=== PATIENT | male | born 1970 | race Caucasian/White ===

== ENCOUNTER 2021-03-04 17:43 | Inpatient (IN) ==
--- NOTE | 2021-03-04 18:13 | Emergency Department Note ---
Impression & Plan Weakness, Anemia, Colonic mass, Near syncope ED Provider Note NAME: BARNEY [id number] COOK AGE: 50 SEX: M : 1970 ARRIVES VIA: Walk-In INFORMANT: [Patient] ED PROVIDER(S): [Lm Pizarro MD] CHIEF COMPLAINT: Abnormal labs HISTORY OF PRESENT ILLNESS: Patient is a 50-year-old male who presents to the ED with abnormal laboratory values. Yesterday, he had some routine lab work done and his hemoglobin returned at 6.6. The patient states he has felt some palpitations at night, he has been somewhat dizzy and weak. At times, he has almost passed out. He complains of intermittent lower abdominal pain that has been going on for months. No black or bloody stool, no vomiting. He has not had fever, chills, cough or congestion. He has no history of GI bleeding and is on no blood thinners. REVIEW OF SYSTEMS: See HPI for pertinent positives and negatives. A total of ten systems were reviewed and were otherwise negative. PMHx/PSHx: See Below SOCIAL HISTORY: See Below. PHYSICAL EXAM: GENERAL: Patient is in no acute distress. HEENT: No acute trauma, normocephalic atraumatic, mucous membranes moist, no nasal congestion, no scleral icterus. NECK: No stridor, no adenopathy, no meningismus, trachea is midline. LUNGS: Clear to auscultation bilaterally, no wheeze, no rhonchi, breath sounds equal. HEART: Without murmurs gallops or rubs, regular rate and rhythm. ABDOMEN: Soft, nontender, bowel sounds positive, no hernias, no peritonitis. EXTREMITIES: No cyanosis or edema, full range of motion of all the joints without pain or difficulty, no signs for acute trauma. NEUROLOGIC: Oriented x 3, no acute motor or sensory deficits, no focal weakness. SKIN: No rash, no jaundice, no diaphoresis. Rectal: Brown stool, heme-negative. DIFFERENTIAL DIAGNOSIS: Infection, dehydration, metabolic abnormality, hypo/hyperglycemia, electrolyte disturbance, anemia, GI bleeding, vitamin deficiency, hypoxia, cardiac sources, intracerebral event, toxicologic issues, stroke, TIA, as well as other pathologies. EMERGENCY DEPARTMENT COURSE/PROCEDURES: ECG: Indication was weakness. The ECG shows a normal sinus rhythm with a rate of 84. There is no ST elevation, no PVCs. The QTc is 460. Continuous Cardiac Monitoring: An order was placed for continuous cardiac monitoring. The monitor shows a rate of 88 with normal sinus rhythm. Critical Care Note: I have personally spent 46 minutes of critical care time in the direct management of this patient. This includes bedside care, interpretation of diagnostic studies, and testing, discussion with consultants, patient, and family members, and other required patient management activities. This 46 minutes is in excess of all separately billable procedures. MEDICAL DECISION MAKING: There is a mild leukocytosis, this could be consistent with infection or just the stress of his presentation. Hemoglobin was low at 6.5. Platelet count was somewhat high at 649. No coagulopathy. No significant electrolyte abnormality or kidney failure. No worrisome liver enzyme elevation. Folate and B12 levels were normal. The patient appeared to be in a euthyroid state. ECG showed a sinus rhythm, no acute ischemia. Covid testing returned negative. Chest film showed some cardiomegaly, no pneumonia or CHF. Abdominal and pelvis CT shows a potential colonic mass. On exam, patient was not toxic or febrile. Rectal exam was performed and the stool was heme-negative. The patient did consent to a blood transfusion. He was ordered for 1 unit of blood to be transfused while here in the ED. I spoke to the patient about his findings. I do think a hospital stay is w arranted. He may require more than 1 unit of blood. He needs further work-up for the colonic mass. I did speak with case management. The on-call hospitalist has been consulted. Past Med/Surg History Medical History Anemia Anxiety Depression DMII (diabetes mellitus, type 2) HTN (hypertension) Restless legs syndrome with nocturnal myoclonus Family History (Updated 03/04/21 @ 22:08 by ADAMA Balderas) Father Coronary heart disease Dyslipidemia Hypertension Mother Diabetes Dyslipidemia Sister Ovarian cancer Grandfather Colorectal cancer Social History Smoking Status: Former smoker Smoking End Date: 20 years ago; Hx Alcohol Use: No Hx Substance Use: No Preferred Language: Romanian Communication Ability: Effective Inorganic Chemical Technician Required: No Beliefs That Will Affect Care: None Current Living Situation Comment: [facility] Feels Safe at Home: Yes Safety Concerns: Feels Safe At This Time Assistive Devices: Glasses Allergies Allergies Allergy/AdvReac Type Severity Reaction Status Date / Time shellfish derived Allergy Unknown ON MED LIST Verified 03/04/21 18:15 Home Meds Home Medications Medication Instructions Recorded Confirmed buspirone 10 mg PO DAILY 03/04/21 03/04/21 clonidine HCl 0.1 mg PO DAILY 03/04/21 03/04/21 clonidine HCl 0.3 mg PO HS 03/04/21 03/04/21 enalapril maleate 5 mg PO DAILY 03/04/21 03/04/21 metformin 1,000 mg PO BID 03/04/21 03/04/21 metoprolol tartrate 25 mg PO BID 03/04/21 03/04/21 sertraline 200 mg PO DAILY 03/04/21 03/04/21 topiramate 200 mg PO BID 03/04/21 03/04/21 Results & Data (ED) Vital Signs Vital Signs - 24 hr 03/04/21 17:44 03/04/21 18:10 03/04/21 19:00 Temperature 36.9 C Temperature Source Temporal Artery Scan Pulse Rate 88 77 Pulse Rate [Right Finger] 84 Pulse Rate from SpO2 Sensor 77 Pulse Rhythm Pulse Rhythm [Right Finger] Regular Pulse Strength Pulse Strength [Right Finger] Normal Respiratory Rate 18 20 19 Respiratory Effort / Characteristics Non-Labored Spontaneous Respiratory Depth Normal Blood Pressure 142/85 H 117/76 Blood Pressure [Left Arm] 125/74 Blood Pressure Mean 104 89 Blood Pressure Mean [Left Arm] 91 Blood Pressure Position Sitting Blood Pressure Position [Left Arm] Sitting Pulse Oximetry 99 97 99 Oxygen Delivery Method Room Air Room Air Sepsis Recent Fever Within 48 Hours No Sepsis New/Unexplained Change in Mental Status No Sepsis Action Taken by Nursing No Action Required 03/04/21 21:11 Temperature 37 C Temperature Source Oral Pulse Rate 76 Pulse Rate [Right Finger] Pulse Rate from SpO2 Sensor Pulse Rhythm Regular Pulse Rhythm [Right Finger] Pulse Strength Normal Pulse Strength [Right Finger] Respiratory Rate 20 Respiratory Effort / Characteristics Respiratory Depth Blood Pressure 118/78 Blood Pressure [Left Arm] Blood Pressure Mean 91 Blood Pressure Mean [Left Arm] Blood Pressure Position Sitting Blood Pressure Position [Left Arm] Pulse Oximetry 100 Oxygen Delivery Method Sepsis Recent Fever Within 48 Hours Sepsis New/Unexplained Change in Mental Status Sepsis Action Taken by Retirement Medications Current Medication List: was personally reviewed by me Laboratory Data Attestation: I reviewed the patient's lab results. Result diagrams: 03/04/21 17:59 03/04/21 17:59 Lab Results 03/04/21 03/04/21 03/04/21 Range/Units 17:59 17:59 17:59 WBC 12.34 H (4.8-10.8) K/uL RBC 4.62 L (4.7-6.1) M/uL Hgb 6.5 L* (14.0-18.0) g/dL Hct 25.8 L (42-52) % MCV 55.8 L (80-100) fL MCH 14.1 L (25-34) pg MCHC 25.2 L (32-36) g/dL RDW Std Deviation 43.8 (36.4-46.3) fL RDW Coeff of Maria L 21.8 H (11.5-14.5) % Plt Count 649 H (130-400) K/uL MPV 8.3 (7.4-10.4) fL Immature Gran % (Auto) 0.2 % Neut % (Auto) 60.0 % Lymph % (Auto) 28.3 % Bennett % (Auto) 8.6 % Eos % (Auto) 2.4 % Baso % (Auto) 0.5 % Neut # (Auto) 7.42 H (1.4-6.5) K/uL Lymph # (Auto) 3.49 H (1.2-3.4) K/uL Bennett # (Auto) 1.06 H (0.11-0.59) K/uL Eos # (Auto) 0.29 (0-0.5) K/uL Baso # (Auto) 0.06 (0-0.2) K/uL Immature Gran # (Auto) 0.02 (0.00-0.02) K/uL Polychromasia 1+ Hypochromasia Present Anisocytosis Present Ovalocytes 1+ PT 9.8 (9.0-12.0) Seconds INR 1.0 (0.9-1.1) APTT 21.8 (21.0-31.0) Seconds PTT Ratio 0.8 Sodium (136-145) mmol/L Potassium (3.5-5.1) mmol/L Chloride (98-107) mmol/L Carbon Dioxide (21-32) mmol/L Anion Gap (3-11) BUN (7-18) mg/dl Creatinine (0.6-1.4) mg/dl Est Cr Clr Drug Dosing ml/min Est GFR ( Amer) ml/min Est GFR (Non-Af Amer) ml/min BUN/Creatinine Ratio (10-20) Glucose (70-99) mg/dl Calcium (8.5-10.1) mg/dl Magnesium (1.8-2.4) mg/dl Total Bilirubin (0.2-1) mg/dl AST (15-37) U/L ALT (12-78) U/L Alkaline Phosphatase (45-117) U/L Troponin I (0-0.045) ng/ml Total Protein (6.4-8.2) gm/dl Albumin (3.4-5.0) gm/dl Globulin (2.5-4.0) gm/dl Albumin/Globulin Ratio (0.9-2) Vitamin B12 (193-986) pg/ml Folate (>5.38) ng/ml TSH (0.300-4.500) uIu/ml COVID-19 Eval Order SARS-CoV-2 (PCR) (Negative) Blood Type B Positive Blood Type Recheck Antibody Screen NEGATIVE Crossmatch See Detail 03/04/21 03/04/21 03/04/21 Range/Units 17:59 18:16 19:35 WBC (4.8-10.8) K/uL RBC (4.7-6.1) M/uL Hgb (14.0-18.0) g/dL Hct (42-52) % MCV (80-100) fL MCH (25-34) pg MCHC (32-36) g/dL RDW Std Deviation (36.4-46.3) fL RDW Coeff of Maria L (11.5-14.5) % Plt Count (130-400) K/uL MPV (7.4-10.4) fL Immature Gran % (Auto) % Neut % (Auto) % Lymph % (Auto) % Bennett % (Auto) % Eos % (Auto) % Baso % (Auto) % Neut # (Auto) (1.4-6.5) K/uL Lymph # (Auto) (1.2-3.4) K/uL Bennett # (Auto) (0.11-0.59) K/uL Eos # (Auto) (0-0.5) K/uL Baso # (Auto) (0-0.2) K/uL Immature Gran # (Auto) (0.00-0.02) K/uL Polychromasia Hypochromasia Anisocytosis Ovalocytes PT (9.0-12.0) Seconds INR (0.9-1.1) APTT (21.0-31.0) Seconds PTT Ratio Sodium 141 (136-145) mmol/L Potassium 4.0 (3.5-5.1) mmol/L Chloride 112 H (98-107) mmol/L Carbon Dioxide 23 (21-32) mmol/L Anion Gap 6.0 (3-11) BUN 13 (7-18) mg/dl Creatinine 0.99 (0.6-1.4) mg/dl Est Cr Clr Drug Dosing 104.4 ml/min Est GFR ( Amer) 101.8 ml/min Est GFR (Non-Af Amer) 87.8 ml/min BUN/Creatinine Ratio 13.2 (10-20) Glucose 102 H (70-99) mg/dl Calcium 8.4 L (8.5-10.1) mg/dl Magnesium 2.4 (1.8-2.4) mg/dl Total Bilirubin 0.3 (0.2-1) mg/dl AST 7 L (15-37) U/L ALT 10 L (12-78) U/L Alkaline Phosphatase 92 (45-117) U/L Troponin I < 0.015 (0-0.045) ng/ml Total Protein 7.6 (6.4-8.2) gm/dl Albumin 3.6 (3.4-5.0) gm/dl Globulin 4.0 (2.5-4.0) gm/dl Albumin/Globulin Ratio 0.9 (0.9-2) Vitamin B12 213 (193-986) pg/ml Folate > 20.00 (>5.38) ng/ml TSH 1.600 (0.300-4.500) uIu/ml COVID-19 Eval Order Covid19 at [facility] SARS-CoV-2 (PCR) (Negative) Blood Type Blood Type Recheck Antibody Screen Crossmatch 03/04/21 03/04/21 Range/Units 19:35 20:01 WBC (4.8-10.8) K/uL RBC (4.7-6.1) M/uL Hgb (14.0-18.0) g/dL Hct (42-52) % MCV (80-100) fL MCH (25-34) pg MCHC (32-36) g/dL RDW Std Deviation (36.4-46.3) fL RDW Coeff of Maria L (11.5-14.5) % Plt Count (130-400) K/uL MPV (7.4-10.4) fL Immature Gran % (Auto) % Neut % (Auto) % Lymph % (Auto) % Bennett % (Auto) % Eos % (Auto) % Baso % (Auto) % Neut # (Auto) (1.4-6.5) K/uL Lymph # (Auto) (1.2-3.4) K/uL Bennett # (Auto) (0.11-0.59) K/uL Eos # (Auto) (0-0.5) K/uL Baso # (Auto) (0-0.2) K/uL Immature Gran # (Auto) (0.00-0.02) K/uL Polychromasia Hypochromasia Anisocytosis Ovalocytes PT (9.0-12.0) Seconds INR (0.9-1.1) APTT (21.0-31.0) Seconds PTT Ratio Sodium (136-145) mmol/L Potassium (3.5-5.1) mmol/L Chloride (98-107) mmol/L Carbon Dioxide (21-32) mmol/L Anion Gap (3-11) BUN (7-18) mg/dl Creatinine (0.6-1.4) mg/dl Est Cr Clr Drug Dosing ml/min Est GFR ( Amer) ml/min Est GFR (Non-Af Amer) ml/min BUN/Creatinine Ratio (10-20) Glucose (70-99) mg/dl Calcium (8.5-10.1) mg/dl Magnesium (1.8-2.4) mg/dl Total Bilirubin (0.2-1) mg/dl AST (15-37) U/L ALT (12-78) U/L Alkaline Phosphatase (45-117) U/L Troponin I (0-0.045) ng/ml Total Protein (6.4-8.2) gm/dl Albumin (3.4-5.0) gm/dl Globulin (2.5-4.0) gm/dl Albumin/Globulin Ratio (0.9-2) Vitamin B12 (193-986) pg/ml Folate (>5.38) ng/ml TSH (0.300-4.500) uIu/ml COVID-19 Eval Order SARS-CoV-2 (PCR) NEGATIVE (Negative) Blood Type Blood Type Recheck B Positive Antibody Screen Crossmatch Administered Medications Heparin Sodium (Porcine) (Heparin Sod 5,000 Unit/0.5 Ml Vial) 5,000 units SQ Q8 DEAN Stop: 04/03/21 22:50 Last Admin: 03/04/21 23:56 Dose: 5,000 units Documented by: [id number] Discontinued Medications Ioversol (Optiray 320 150ml) 89 ml IV ONCE ONE Stop: 03/04/21 19:47 Last Admin: 03/04/21 19:46 Dose: 1 ml Documented by: [id number] Imaging Data Radiologist's Impression: Chest X-Ray 03/04/21 18:09 XR chest 1V portable HISTORY: weakness COMPARISON: None. FINDINGS: The cardiac silhouette is mildly enlarged. The lungs are clear. No pleural effusions. No pneumothorax. Old, healed left-sided rib fractures. IMPRESSION: Mild cardiomegaly. Otherwise, no acute process within the chest. ACT 112: Negative or not required by law. Electronically signed by: George Montague M.D. 03/04/2021 6:47 PM Abdomen/Pelvis CT 03/04/21 19:[address] WITH IV CONTRAST CT DOSE: 1003.82 mGy.cm HISTORY: lower abd pain, anemia TECHNIQUE: Multiaxial CT images of the abdomen and pelvis were performed following the use of intravenous contrast. A dose lowering technique was utilized adhering to the principles of ALARA. COMPARISON STUDY: None. FINDINGS: There is a 1.4 cm irregular nodule within the left lower lobe posteriorly abutting the pleura. There is also a trace left pleural effusion. No pneumoperitoneum. No pneumatosis. No suspicious lytic or blastic osseous lesions. Small calcification within the right hepatic lobe. No hepatic or splenic masses. The adrenal glands, gallbladder, and pancreas are unremarkable. The kidneys enhance normally. No hydronephrosis. Normal caliber abdominal aorta. No retroperitoneal lymphadenopathy. The bladder is unremarkable. No evidence for bowel obstruction. Normal appendix. There is a focal area of moderate bowel wall thickening involving the proximal descending colon measuring approximately 8 cm in length. There are multiple enlarged pericolonic lymph nodes at this location. Some of these appear to be partially necrotic. Dominant pericolonic/mesenteric lymph node on image 184 measures 2.5 x 1.8 cm. This focal area of bowel wall thickening is highly suspicious for a colonic mass with associated pericolonic metastatic lymphadenopathy. No perforation identified. IMPRESSION: 1. An 8 cm segment of moderate bowel wall thickening involving the proximal descending colon with associated pericolonic/mesenteric lymphadenopathy as described above. This is highly suspicious for a colonic mass. GI consultation recommended for follow-up colonoscopy. 2. There is a 1.4 cm irregular nodule within the left lower lobe posteriorly abutting the pleura with a trace left pleural effusion. This could represent neoplasm/metastatic disease. Follow-up PET scan recommended for further evaluation. ACT 112: Negative or not required by law. Electronically signed by: George Montague M.D. 03/04/2021 8:06 PM Discharge Plan Visit Data Chief Complaint: Abnormal Labs/Diagnostic Testing Stated Complaint: HGB 6.6 ED Provider: Lm Pizarro Discharge Problem: Weakness, Anemia, Colonic mass, Near syncope Patient Disposition: Admitted As Inpatient Condition: Fair Discharge Instructions Interventions: ED Discharge Assessment Last Done: 03/04/21 22:47 Discharge Problem: Anemia Qualifiers: Anemia type: unspecified type Qualified Code(s): D64.9 - Anemia, unspecified
[2021-03-04 18:38] LABS: Alanine Aminotransferase 10 U/L (12-78); Albumin Level 3.6 gm/dl (3.4-5.0); Aspartate Aminotransferase 7 U/L (15-37); BUN Creatinine Ratio 13.2 (10-20); Blood Urea Nitrogen 13 mg/dl (7-18); Calcium 8.4 mg/dl (8.5-10.1); Carbon Dioxide 23 mmol/L (21-32); Chloride 112 mmol/L (98-107); Creatinine Clr Calc Pharmacy 104.4 ml/min; Est GFR (African American) 101.8 ml/min; Est GFR (Non-African American) 87.8 ml/min; Glucose 102 mg/dl (70-99); Magnesium 2.4 mg/dl (1.8-2.4); Sodium 141 mmol/L (136-145)
[2021-03-04 18:46] LABS: Partial Thromboplastin Ratio 0.8; Partial Thromboplastin Time 21.8 Seconds (21.0-31.0); Prothrombin Time 9.8 Seconds (9.0-12.0)
--- NOTE | 2021-03-04 18:48 | XRay Report ---
XR chest 1V portable HISTORY: weakness COMPARISON: None. FINDINGS: The cardiac silhouette is mildly enlarged. The lungs are clear. No pleural effusions. No pn eumothorax. Old, healed left-sided rib fractures. IMPRESSION: Mild cardiomegaly. Otherwise, no acute process within the chest. ACT 112: Negative or not required by law. Electronically signed by: George Montague M.D. 03/04/2021 6:47 PM
[2021-03-04 18:49] LABS: Albumin Globulin Ratio 0.9 (0.9-2); Alkaline Phosphatase 92 U/L (45-117); Bilirubin,Total 0.3 mg/dl (0.2-1); Total Protein 7.6 gm/dl (6.4-8.2); Troponin I < 0.015 ng/ml (0-0.045)
[2021-03-04 18:54] LABS: Hematocrit (blood only) 25.8 % (42-52); Hemoglobin 6.5 g/dL (14.0-18.0); Mean Corpuscular Hemoglobin 14.1 pg (25-34); Mean Corpuscular Hgb Conc 25.2 g/dL (32-36); Mean Corpuscular Volume 55.8 fL (80-100); Mean Platelet Volume 8.3 fL (7.4-10.4); Platelet Count 649 K/uL (130-400); RDW Coefficient of Variation 21.8 % (11.5-14.5); RDW Standard Deviation 43.8 fL (36.4-46.3); Red Blood Count 4.62 M/uL (4.7-6.1); White Blood Count 12.34 K/uL (4.8-10.8)
[2021-03-04 19:11] LABS: Folate (Folic Acid) > 20.00 ng/ml (>5.38); Vitamin B12 213 pg/ml (193-986)
[2021-03-04] MEDS ORDERED: SODIUM CHLORIDE 0.9% 250 ML IV PRN ×2 (19:16→22:51)
[2021-03-04 19:23] LABS: Anisocytosis Present; Basophils # (auto) 0.06 K/uL (0-0.2); Basophils % (auto) 0.5 %; Eosinophils # (auto) 0.29 K/uL (0-0.5); Eosinophils % (auto) 2.4 %; Hypochromasia Present; Immature Granulocytes # (auto) 0.02 K/uL (0.00-0.02); Immature Granulocytes % (auto) 0.2 %; Lymphocytes # (auto) 3.49 K/uL (1.2-3.4); Lymphocytes % (auto) 28.3 %; Monocytes # (auto) 1.06 K/uL (0.11-0.59); Monocytes % (auto) 8.6 %; Neutrophils # (auto) 7.42 K/uL (1.4-6.5); Ovalocytes 1+; Polychromasia 1+
[2021-03-04] MEDS ORDERED: OPTIRAY 320 150ml IV ONE (19:46)
--- NOTE | 2021-03-04 20:07 | CT Scan Report ---
ABDOMEN AND PELVIS CT WITH IV CONTRAST CT DOSE: 1003.82 mGy.cm HISTORY: lower abd pain, anemia TECHNIQUE: Multiaxial CT images of the abdomen and pelvis were performed following the use of intrave nous contrast. A dose lowering technique was utilized adhering to the principles of ALARA. COMPARISON STUDY: None. FINDINGS: There is a 1.4 cm irregular nodule within the left lower lobe posteriorly abutting the pleu ra. There is also a trace left pleural effusion. No pneumoperitoneum. No pneumatosis. No suspicious l ytic or blastic osseous lesions. Small calcification within the right hepatic lobe. No hepatic or spl enic masses. The adrenal glands, gallbladder, and pancreas are unremarkable. The kidneys enhance norm ally. No hydronephrosis. Normal caliber abdominal aorta. No retroperitoneal lymphadenopathy. The blad nagi is unremarkable. No evidence for bowel obstruction. Normal appendix. There is a focal area of mod erate bowel wall thickening involving the proximal descending colon measuring approximately 8 cm in l ength. There are multiple enlarged pericolonic lymph nodes at this location. Some of these appear to be partially necrotic. Dominant pericolonic/mesenteric lymph node on image 184 measures 2.5 x 1.8 cm. This focal area of bowel wall thickening is highly suspicious for a colonic mass with associated per icolonic metastatic lymphadenopathy. No perforation identified. IMPRESSION: 1. An 8 cm segment of moderate bowel wall thickening involving the proximal descending colon with ass ociated pericolonic/mesenteric lymphadenopathy as described above. This is highly suspicious for a co lonic mass. GI consultation recommended for follow-up colonoscopy. 2. There is a 1.4 cm irregular nodule within the left lower lobe posteriorly abutting the pleura with a trace left pleural effusion. This could represent neoplasm/metastatic disease. Follow-up PET scan recommended for further evaluation. ACT 112: Negative or not required by law. Electronically signed by: George Montague M.D. 03/04/2021 8:06 PM
--- NOTE | 2021-03-04 21:50 | History & Physical Report ---
Date of Service March 04, 2021 Assessment & Plan (1) Abnormal CT scan: 1. An 8 cm segment of moderate bowel wall thickening involving the proximal descending colon with associated pericolonic/mesenteric lymphadenopathy as described above. This is highly suspicious for a colonic mass. GI consult ation recommended for follow-up colonoscopy. 2. There is a 1.4 cm irregular nodule within the left lower lobe posteriorly abutting the pleura with a trace left pleural effusion. This could represent n eoplasm/metastatic disease. Follow-up PET scan recommended for further evaluation. Gastroenterology consult placed evaluate for malignancy Keep NPO after midnight (2) Anemia: Multifactorial with microcytic hypochromic - Blood transfusion already started in ED, so will need to send Iron panel studies at later time - Hematology/Oncological evaluation as above pending GI evaluation - Transfuse 2 units PRBC - Follow for acute blood loss (3) Restless legs syndrome with nocturnal myoclonus: Symptomatic while sleeping no current therapy or workup completed (4) HTN (hypertension): - Continue Clonidine - Enalapril will need converted to formulary- currently on hold until proven hemodynamically stable (5) DMII (diabetes mellitus, type 2): Hold meformin - Loose sliding scale - CF 35, no carb ratio coverage (6) Depression: Anxiety/depression Continue sertaline, buspirone, topiramate (7) Anxiety: As above (8) Lower urinary tract symptoms (LUTS): hesitation with starting urine - Defer to rounding team History of Present Illness Primary Care Provider: LISSETTE Levi 50 YOM with past medical history of: HTN, DMII, anxiety, depression. Patient was brought over from [facility] today for abnormal labs with a HGB of 6.5 , HCT 25.8. He denies any history or recent, blood in stools, dark tarry stools, hematemesis. He had a CT scan performed of his abdomen and pelvis that revealed a 8 cm segment of moderate bowel wall thickening involving the proximal descending colon with associated pericolonic/mesenteric lymphadenopathy as, That is highly suspicious for a colonic mass. He is also noted to have 1.cm irregular nodule within the left lower lobe with trace left pleural effusion. He was typed and crossed for PRBC and was receiving 1 unit upon evaluation. As above, he denies any blood in stools, hematemesis, or blood when wiping. He has no pain with defecation or change in his stool caliber or frequency. He will occasionally get a pain in his right lower quadrant that will radiate to his testicle maybe once a week. He also endorses early satiety for the past 2 months as well as feeling easily tired and fatigued. Says he weighed himself recently and was 230 lbs which was ~30 pound weight loss over the past 4-6 months. Denies any bone pain or difficulty breathing. No night sweats or waking. He recall, Grandfather with history of colon cancer, sister is from Ovarian cancer, and Brother had some stomach disease and finishing Chemo. Allergies Allergy/AdvReac Type Severity Reaction Status Date / Time shellfish derived Allergy Unknown ON MED LIST Verified 03/04/21 18:15 Home Medications Medication Instructions Recorded Confirmed Type buspirone 10 mg PO DAILY 03/04/21 03/04/21 History clonidine HCl 0.1 mg PO DAILY 03/04/21 03/04/21 History clonidine HCl 0.3 mg PO HS 03/04/21 03/04/21 History enalapril maleate 5 mg PO DAILY 03/04/21 03/04/21 History metformin 1,000 mg PO BID 03/04/21 03/04/21 History metoprolol tartrate 25 mg PO BID 03/04/21 03/04/21 History sertraline 200 mg PO DAILY 03/04/21 03/04/21 History topiramate 200 mg PO BID 03/04/21 03/04/21 History Past Med/Surg History Medical History Anemia Anxiety Depression DMII (diabetes mellitus, type 2) HTN (hypertension) Restless legs syndrome with nocturnal myoclonus Family History (Updated 03/04/21 @ 22:08 by ADAMA Balderas) Father Coronary heart disease Dyslipidemia Hypertension Mother Diabetes Dyslipidemia Sister Ovarian cancer Grandfather Colorectal cancer Social History Smoking Status: Former smoker Smoking End Date: 20 years ago; Hx Alcohol Use: No Hx Substance Use: No Preferred Language: Hungarian Communication Ability: Effective Spanish Literature Professor Required: No Beliefs That Will Affect Care: None Current Living Situation Comment: [facility] Feels Safe at Home: Yes Safety Concerns: Feels Safe At This Time Assistive Devices: Glasses Review of Systems Review of Systems: REVIEW OF SYSTEMS: Constitutional: No fever, sweats or chills Eyes: (+) worsening in vision wears glasses, No diplopia ENT: normal hearing, no trouble swallowing Respiratory: No cough, sputum, dyspnea at rest or on exertion Cardiovascular: No chest pain, tightness or palpitations Abdomen: as per HPI, No pain, nausea, vomiting, diarrhea or constipation Musculoskeletal: (+) myoclonus of legs while sleeping with pain, No joint pain, calf pain, swelling Neurologic: No weakness, numbness/tingling, or balance problems Psychiatric: (+) anxiety or depression Skin: No rash or itch : (+) difficulty starting stream Physical Exam Physical Exam: PHYSICAL EXAM: General: awake, alert, no apparent distress Head: Normocephalic, atraumatic ENT: PERRL, EOMI, pale conjunctivae no pharyngeal exudate, mucous membranes moist, no bleeding gums Neuro: AAO x 3, speech clear and appropriate, strength intact bilaterally 5/5, sensation intact and equal all extremities and dermatomes, no pronator drift Chest: equal rise and fall of the chest, no accessory muscle use, no heaves or thrills, Clear to auscultation, on room air, Cardiac: Regular rate and rhythm, telemetry reviewed- NSR, skin warm dry, cap refill <3 seconds, peripheral pulses +2 no JVD, no murmur, no edema GI: NABS x 4 quadrants, soft, nontender to palpation, no rebound, guarding or tenderness : Spontaneously voiding, no pain, no CVA tenderness, Extremities: Normal inspection, no peripheral edema or erythema, calfs nontender to palpation Psych: Normal mood and affect Skin: no rash or erythema Results & Data Results & Data ([facility]) Vital Signs (Past 12 Hours) Vital Signs Temp Pulse Pulse Resp BP BP Pulse Ox 03/04/21 21:39 36.9 C 71 20 135/84 100 03/04/21 21:11 37 C 76 20 118/78 100 03/04/21 19:00 77 19 117/76 99 03/04/21 18:10 84 20 125/74 97 03/04/21 17:44 36.9 C 88 18 142/85 H 99 Laboratory Results Abnormal lab results 03/04/21 03/04/21 03/04/21 Range/Units 17:59 17:59 17:59 WBC 12.34 H (4.8-10.8) K/uL RBC 4.62 L (4.7-6.1) M/uL Hgb 6.5 L* (14.0-18.0) g/dL Hct 25.8 L (42-52) % MCV 55.8 L (80-100) fL MCH 14.1 L (25-34) pg MCHC 25.2 L (32-36) g/dL RDW Coeff of Maria L 21.8 H (11.5-14.5) % Plt Count 649 H (130-400) K/uL Neut # (Auto) 7.42 H (1.4-6.5) K/uL Lymph # (Auto) 3.49 H (1.2-3.4) K/uL Elliott # (Auto) 1.06 H (0.11-0.59) K/uL Chloride 112 H (98-107) mmol/L Glucose 102 H (70-99) mg/dl Calcium 8.4 L (8.5-10.1) mg/dl AST 7 L (15-37) U/L ALT 10 L (12-78) U/L Crossmatch See Detail Diagnostic Findings Chest X-Ray 03/04/21 18:09 XR chest 1V portable HISTORY: weakness COMPARISON: None. FINDINGS: The cardiac silhouette is mildly enlarged. The lungs are clear. No pleural effusions. No pneumothorax. Old, healed left-sided rib fractures. IMPRESSION: Mild cardiomegaly. Otherwise, no acute process within the chest. Electronically signed by: George Montague M.D. 03/04/2021 6:47 PM Abdomen/Pelvis CT 03/04/21 19:[address] WITH IV CONTRAST CT DOSE: 1003.82 mGy.cm HISTORY: lower abd pain, anemia TECHNIQUE: Multiaxial CT images of the abdomen and pelvis were performed following the use of intravenous contrast. A dose lowering technique was utilized adhering to the principles of ALARA. COMPARISON STUDY: None. FINDINGS: There is a 1.4 cm irregular nodule within the left lower lobe posteriorly abutting the pleura. There is also a trace left pleural effusion. No pneumoperitoneum. No pneumatosis. No suspicious lytic or blastic osseous lesions. Small calcification within the right hepatic lobe. No hepatic or splenic masses. The adrenal glands, gallbladder, and pancreas are unremarkable. The kidneys enhance normally. No hydronephrosis. Normal caliber abdominal aorta. No retroperitoneal lymphadenopathy. The bladder is unremarkable. No evidence for bowel obstruction. Normal appendix. There is a focal area of moderate bowel wall thickening involving the proximal descending colon measuring approximately 8 cm in length. There are multiple enlarged pericolonic lymph nodes at this location. Some of these appear to be partially necrotic. Dominant pericolonic/mesenteric lymph node on image 184 measures 2.5 x 1.8 cm. This focal area of bowel wall thickening is highly suspicious for a colonic mass with associated pericolonic metastatic lymphadenopathy. No perforation identified. IMPRESSION: 1. An 8 cm segment of moderate bowel wall thickening involving the proximal descending colon with associated pericolonic/mesenteric lymphadenopathy as descr ibed above. This is highly suspicious for a colonic mass. GI consultation recommended for follow-up colonoscopy. 2. There is a 1.4 cm irregular nodule within the left lower lobe posteriorly abutting the pleura with a trace left pleural effusion. This could represent neoplasm/metastatic disease. Follow-up PET scan recommended for further evaluation. Electronically signed by: George Montague M.D. 03/04/2021 8:06 PM Medications Administered Discontinued Medications Ioversol (Optiray 320 150ml) 89 ml IV ONCE ONE Stop: 03/04/21 19:47 Last Admin: 03/04/21 19:46 Dose: 1 ml Documented by: [id number] ECG Additional Comments: Normal sinus rhythm Low voltage QRS Borderline ECG No previous ECGs available Code Status & VTE Plan Code Status CODE: FULL VTE: SCD's, Heparin 5000 units subq q8 VTE Prophylaxis Plan VTE Prophylaxis will be ordered: Yes Supervising Physician Co-Signing Physician Notes Patient seen and examined, chart reviewed, case discussed with ADAMA Martinez and I agree with his assessment and plan as above. Briefly, patient presents with microcytic anemia, found with colonic mass concerning for malignancy. On exam patient is afebrile, HD stable, NAD Skin -+Pallor HEENT - NC/AT, PERRL, MMM, Neck supple Heart - +S1/S2, regular, no m/r/g Lungs - CTA Abd - +BS, soft, NT/ND Ext - No edema Labs and images reviewed. Hgb=6.5, Hct=25.8, MCV=55.8, MCH=14.1 Assessment/Plan -Transfusion of PRBCs - monitor CBC -GI consultation for workup of mass, possible malignancy -Consider Heme/Onc consultation -Remainder of plan as above PG Care Time/CCT Total # of Minutes Spent Total Time Spent with Patient: Total time spent is greater than 50% in coordination of care (as documented) at patient's floor/unit and/or counseling patient: Coding Level of Care Code 91760 Initial Inpt Care Lvl [address] scan R93.89 Anemia D64.89 Anemia type: other cause Other causes of anemia: other cause, not classified Restless legs syndrome with nocturnal myoclonus G25.81; G25.3 HTN (hypertension) I10 Hypertension type: essential hypertension DMII (diabetes mellitus, type 2) E11.69 Diabetes mellitus complication status: with other specified complication Diabetes mellitus bed bug exterminator insulin use: without bed bug exterminator use Depression F32.9 Depression Type: unspecified Anxiety F41.9 Lower urinary tract symptoms (LUTS) R39.9 (1) DMII (diabetes mellitus, type 2) Diabetes mellitus complication status: with other specified complication Diabetes mellitus bed bug exterminator insulin use: without bed bug exterminator use Qualified Code(s): E11.69 - Type 2 diabetes mellitus with other specified complication (2) Anemia Anemia type: other cause Other causes of anemia: other cause, not classified Qualified Code(s): D64.89 - Other specified anemias (3) Depression Depression Type: unspecified Qualified Code(s): F32.9 - Major depressive disorder, single episode, unspecified (4) HTN (hypertension) Hypertension type: essential hypertension Qualified Code(s): I10 - Essential (primary) hypertension
[2021-03-04] MEDS ORDERED: GLUCOSE 10 TABS/TUBE PO PRN (22:51)
[2021-03-04] MEDS ORDERED: GLUCOSE 40% GEL 15 GM TUBE PO PRN (22:51)
[2021-03-04] MEDS ORDERED: CARBOHYDRATES FOR HYPOGLYCEMIA PO PRN (22:51)
[2021-03-04] MEDS ORDERED: ACETAMINOPHEN 325 MG TAB PO PRN (22:51)
[2021-03-04] MEDS ORDERED: GLUCAGON FOR INJ 1 MG VIAL SQ PRN (22:51)
[2021-03-04] MEDS ORDERED: DEXTROSE 50% 50 ML SYRINGE IV PRN (22:51)
[2021-03-04] MEDS: HEPARIN SOD 5,000 UNIT/0.5 ML VIAL SQ SCH (23:56)
[2021-03-05] MEDS ORDERED: Nursing to Pharmacy Communication SCH ×2 (00:30→10:15)
[2021-03-05] MEDS ORDERED: INSULIN ASPART 100 UNITS/ML 3 ML PEN SC SCH ×2 (06:00→07:30)
[2021-03-05] MEDS: HEPARIN SOD 5,000 UNIT/0.5 ML VIAL SQ SCH (06:07)
[2021-03-05 06:25] LABS: Hematocrit (blood only) 28.9 % (42-52); Hemoglobin 8.3 g/dL (14.0-18.0); Mean Corpuscular Hemoglobin 17.2 pg (25-34); Mean Corpuscular Hgb Conc 28.7 g/dL (32-36); Mean Platelet Volume 8.3 fL (7.4-10.4); Platelet Count 491 K/uL (130-400); RDW Coefficient of Variation 26.8 % (11.5-14.5); RDW Standard Deviation 57.3 fL (36.4-46.3); Red Blood Count 4.82 M/uL (4.7-6.1); White Blood Count 9.65 K/uL (4.8-10.8)
[2021-03-05 06:56] LABS: BUN Creatinine Ratio 10.7 (10-20); Calcium 8.8 mg/dl (8.5-10.1); Creatinine Clr Calc Pharmacy 110.9 ml/min; Est GFR (African American) 109.8 ml/min; Est GFR (Non-African American) 94.7 ml/min; Magnesium 2.2 mg/dl (1.8-2.4); Potassium 3.9 mmol/L (3.5-5.1)
[2021-03-05 07:21] LABS: Anisocytosis Present; Basophils # (auto) 0.05 K/uL (0-0.2); Basophils % (auto) 0.5 %; Eosinophils # (auto) 0.28 K/uL (0-0.5); Eosinophils % (auto) 2.9 %; Hypochromasia Present; Immature Granulocytes # (auto) 0.02 K/uL (0.00-0.02); Immature Granulocytes % (auto) 0.2 %; Lymphocytes # (auto) 2.81 K/uL (1.2-3.4); Lymphocytes % (auto) 29.1 %; Monocytes % (auto) 9.3 %; Neutrophils # (auto) 5.59 K/uL (1.4-6.5); Ovalocytes 2+; Poikilocytosis Present; Polychromasia 1+
--- NOTE | 2021-03-05 07:54 | Electrocardiogram Report ---
Test Reason : Blood Pressure : / mmHG Vent. Rate : 084 BPM Atrial Rate : 084 BPM P-R Int : 140 ms QRS Dur : 080 ms QT Int : 390 ms P-R-T Axes : 036 025 028 degrees QTc Int : 460 ms Normal sinus rhythm Low voltage QRS Borderline ECG No previous ECGs available Confirmed by Cornel Abdalla ([id number]) on 03/05/2021 7:54:01 AM Referred By: Gur[facility] [email or web address] Confirmed By:Cornel Abdalla
[2021-03-05] MEDS: TOPIRAMATE 100 MG TAB PO SCH ×2 (08:32→21:23)
[2021-03-05] MEDS: cloNIDine HCL 0.1 MG TAB PO SCH (08:32)
[2021-03-05] MEDS: busPIRone 5 MG TAB PO SCH (08:33)
[2021-03-05] MEDS: SERTRALINE HCL 100 MG TABLET PO SCH (08:33)
[2021-03-05] MEDS: METOPROLOL TARTRATE 25 MG TAB PO SCH ×2 (08:33→21:23)
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
[2021-03-05] MEDS ORDERED: IRON SUCROSE 300 MG in SODIUM CHLORIDE 0.9% 250 ML IV ONE (10:00)
[2021-03-05] MEDS: CYANOCOBALAMIN 1000 MCG/ML VIAL IM SCH (11:18)
[2021-03-05] MEDS: INSULIN ASPART 100 UNITS/ML 3 ML PEN SC SCH ×3 (12:50→21:12)
--- NOTE | 2021-03-05 18:58 | Hospitalist Progress Note ---
Date of Service March 05, 2021 Assessment & Plan (1) Anemia: Multifactorial with microcytic hypochromic. Hgb 6.1 on admission No gross bleeding anywhere prior to admission CT abd/pel with 8cm segment of bowel wall thickening in prox descending colon w/ associated mesenteric TORY--> highly suspicious for colon mass no liver lesions, normal LFTs With strong +FH of sister with ovarian CA age 42, Brother with colon CA age 52, and grandfather with colon CA Most likely all occult blood loss from colon mass -given 2 units pRBCs and hgb up to 8.3 -will give Venofer 300mg IV daily x 3 days (iron studies not drawn prior to transfusion being given) -follow CBC in AM -ok to give Lovenox for DVT proph given high risk of VTE in setting of hospitalization and possible malignancy -also B12 low at 250--> give IM B12 1000 mcg daily x 3 days -check CEA (2) Abnormal CT scan: 1. An 8 cm segment of moderate bowel wall thickening involving the proximal descending colon with associated pericolonic/mesenteric lymphadenopathy as described above. This is highly suspicious for a colonic mass. GI consultation recommended for follow-up colonoscopy. 2. There is a 1.4 cm irregular nodule within the left lower lobe posteriorly abutting the pleura with a trace left pleural effusion. This could represent neoplasm/metastatic disease. Follow-up PET scan recommended for further evaluation. Gastroenterology consult placed evaluate for malignancy -plan for colonoscopy on Monday as no obstruction -check CEA -diet today, clears tomorrow and Monday, NPO after midnight Sun for scope Monday (3) GI bleed: as above Hemeoccult stool positive (4) Pulmonary nodule: 1.4 LLL nodule with small effusion Does have a h/o severe PNA in his 20s Former smoker but quit 20 years ago Could be metastatic disease Radiology recommends PET scan -will check CT Chest now (5) Thrombocytosis: 600s and now down to 400s, likely reactive secondary to severe Fe-def anemia follow CBC (6) B12 deficiency: as above replace (7) Anxiety: continue home meds (8) Depression: Anxiety/depression Continue sertaline, buspirone, topiramate (9) DMII (diabetes mellitus, type 2): Hold metformin -accuchecks, Novolog achs check HgbA1C in AM (10) HTN (hypertension): BPa controlled - Continue Clonidine, metoprolol - Enalapril will need converted to formulary- currently on hold until proven hemodynamically stable--he is HD stable -restart enalapril (11) Lower urinary tract symptoms (LUTS): hesitation with starting urine bladder scan qshift to check PVRs (12) Restless legs syndrome with nocturnal myoclonus: new onset in last few months, severe limb movement at times most likely due to severe iron deficiency replacing iron and received PRBCs (13) DVT prophylaxis: Lovenox SQ Dispo-continued stay Admission and Anticipated Discharge Date Admission Date: March 04, 2021 Subjective Pt reports doing ok today. Had a nonbloody normal BM today that was Heme +. Has been having presyncope symptoms in a hot shower for the last few months and also developed severe restless legs in the last few months. He never c/o any symptoms at the nursing home because of COVID< he didn't want to have to go anywhere. He is eating here, no changes in caliber of stool, no nausea. Review of Systems Review of Systems: All systems reviewed & are unremarkable except as noted in HPI & below Physical Exam Constitutional: WD/WN, vitals as above Eyes: + anicteric sclerae Neck: trachea midline, no thyromegaly Respiratory: normal respiratory effort, lungs clear to auscultation Cardiovascular: RRR, no murmur, no edema Extremities: no calf tenderness Chest (Breasts): Chest: normal inspection of chest Gastrointestinal (Abdomen): normal bowel sounds, soft, nontender, no hepatosplenomegaly Musculoskeletal: Extremities: extremities normal to inspection; no cyanosis and no clubbing Skin: no rashes, warm and dry Neurologic: moves all extremities and awake; no focal motor deficits Psychiatric: A+Ox3, euthymic affect Lymphatic: no lymphedema Results & Data Results & Data ([facility]) Vital Signs (Past 12 Hours) Vital Signs Temp Pulse Resp BP Pulse Ox 03/05/21 15:36 37 C 66 19 127/81 96 03/05/21 07:56 37 C 76 19 124/79 95 Laboratory Results 03/05/21 03/05/21 03/05/21 Range/Units Unknown 17:28 11:47 WBC (4.8-10.8) K/uL RBC (4.7-6.1) M/uL Hgb (14.0-18.0) g/dL Hct (42-52) % MCV (80-100) fL MCH (25-34) pg MCHC (32-36) g/dL RDW Std Deviation (36.4-46.3) fL RDW Coeff of Maria L (11.5-14.5) % Plt Count (130-400) K/uL MPV (7.4-10.4) fL Immature Gran % (Auto) % Neut % (Auto) % Lymph % (Auto) % [place] % (Auto) % Eos % (Auto) % Baso % (Auto) % Neut # (Auto) (1.4-6.5) K/uL Lymph # (Auto) (1.2-3.4) K/uL [place] # (Auto) (0.11-0.59) K/uL Eos # (Auto) (0-0.5) K/uL Baso # (Auto) (0-0.2) K/uL Immature Gran # (Auto) (0.00-0.02) K/uL Polychromasia Hypochromasia Poikilocytosis Anisocytosis Ovalocytes Sodium (136-145) mmol/L Potassium (3.5-5.1) mmol/L Chloride (98-107) mmol/L Carbon Dioxide (21-32) mmol/L Anion Gap (3-11) BUN (7-18) mg/dl Creatinine (0.6-1.4) mg/dl Est Cr Clr Drug Dosing ml/min Est GFR ( Amer) ml/min Est GFR (Non-Af Amer) ml/min BUN/Creatinine Ratio (10-20) Glucose (70-99) mg/dl POC Glucose 94 103 H (70-99) mg/dl Calcium (8.5-10.1) mg/dl Magnesium (1.8-2.4) mg/dl Vitamin B12 (193-986) pg/ml Folate (>5.38) ng/ml Nasal Screen MRSA (PCR) (Negative) Stool Occult Bld Scrn Positive A (Negative) COVID-19 Eval Order SARS-CoV-2 (PCR) (Negative) Blood Type Blood Type Recheck Antibody Screen Crossmatch 06/04/21 06/04/21 06/04/21 Range/Units 06:02 06:02 05:56 WBC 9.65 (4.8-10.8) K/uL RBC 4.82 (4.7-6.1) M/uL Hgb 8.3 L (14.0-18.0) g/dL Hct 28.9 L (42-52) % MCV 60.0 L D (80-100) fL MCH 17.2 L (25-34) pg MCHC 28.7 L (32-36) g/dL RDW Std Deviation 57.3 H (36.4-46.3) fL RDW Coeff of Maria L 26.8 H (11.5-14.5) % Plt Count 491 H (130-400) K/uL MPV 8.3 (7.4-10.4) fL Immature Gran % (Auto) 0.2 % Neut % (Auto) 58.0 % Lymph % (Auto) 29.1 % [place] % (Auto) 9.3 % Eos % (Auto) 2.9 % Baso % (Auto) 0.5 % Neut # (Auto) 5.59 (1.4-6.5) K/uL Lymph # (Auto) 2.81 (1.2-3.4) K/uL [place] # (Auto) 0.90 H (0.11-0.59) K/uL Eos # (Auto) 0.28 (0-0.5) K/uL Baso # (Auto) 0.05 (0-0.2) K/uL Immature Gran # (Auto) 0.02 (0.00-0.02) K/uL Polychromasia 1+ Hypochromasia Present Poikilocytosis Present Anisocytosis Present Ovalocytes 2+ Sodium 142 (136-145) mmol/L Potassium 3.9 (3.5-5.1) mmol/L Chloride 113 H (98-107) mmol/L Carbon Dioxide 22 (21-32) mmol/L Anion Gap 7.0 (3-11) BUN 10 (7-18) mg/dl Creatinine 0.93 (0.6-1.4) mg/dl Est Cr Clr Drug Dosing 110.9 ml/min Est GFR ( Amer) 109.8 ml/min Est GFR (Non-Af Amer) 94.7 ml/min BUN/Creatinine Ratio 10.7 (10-20) Glucose 94 (70-99) mg/dl POC Glucose 97 (70-99) mg/dl Calcium 8.8 (8.5-10.1) mg/dl Magnesium 2.2 (1.8-2.4) mg/dl Vitamin B12 (193-986) pg/ml Folate (>5.38) ng/ml Nasal Screen MRSA (PCR) (Negative) Stool Occult Bld Scrn (Negative) COVID-19 Eval Order SARS-CoV-2 (PCR) (Negative) Blood Type Blood Type Recheck Antibody Screen Crossmatch 03/04/21 03/04/21 03/04/21 Range/Units 23:15 22:57 20:01 WBC (4.8-10.8) K/uL RBC (4.7-6.1) M/uL Hgb (14.0-18.0) g/dL Hct (42-52) % MCV (80-100) fL MCH (25-34) pg MCHC (32-36) g/dL RDW Std Deviation (36.4-46.3) fL RDW Coeff of Maria L (11.5-14.5) % Plt Count (130-400) K/uL MPV (7.4-10.4) fL Immature Gran % (Auto) % Neut % (Auto) % Lymph % (Auto) % [place] % (Auto) % Eos % (Auto) % Baso % (Auto) % Neut # (Auto) (1.4-6.5) K/uL Lymph # (Auto) (1.2-3.4) K/uL [place] # (Auto) (0.11-0.59) K/uL Eos # (Auto) (0-0.5) K/uL Baso # (Auto) (0-0.2) K/uL Immature Gran # (Auto) (0.00-0.02) K/uL Polychromasia Hypochromasia Poikilocytosis Anisocytosis Ovalocytes Sodium (136-145) mmol/L Potassium (3.5-5.1) mmol/L Chloride (98-107) mmol/L Carbon Dioxide (21-32) mmol/L Anion Gap (3-11) BUN (7-18) mg/dl Creatinine (0.6-1.4) mg/dl Est Cr Clr Drug Dosing ml/min Est GFR ( Amer) ml/min Est GFR (Non-Af Amer) ml/min BUN/Creatinine Ratio (10-20) Glucose (70-99) mg/dl POC Glucose 92 (70-99) mg/dl Calcium (8.5-10.1) mg/dl Magnesium (1.8-2.4) mg/dl Vitamin B12 (193-986) pg/ml Folate (>5.38) ng/ml Nasal Screen MRSA (PCR) Negative (Negative) Stool Occult Bld Scrn (Negative) COVID-19 Eval Order SARS-CoV-2 (PCR) (Negative) Blood Type Blood Type Recheck B Positive Antibody Screen Crossmatch 03/04/21 03/04/21 03/04/21 Range/Units 19:35 19:35 18:16 WBC (4.8-10.8) K/uL RBC (4.7-6.1) M/uL Hgb (14.0-18.0) g/dL Hct (42-52) % MCV (80-100) fL MCH (25-34) pg MCHC (32-36) g/dL RDW Std Deviation (36.4-46.3) fL RDW Coeff of Maria L (11.5-14.5) % Plt Count (130-400) K/uL MPV (7.4-10.4) fL Immature Gran % (Auto) % Neut % (Auto) % Lymph % (Auto) % [place] % (Auto) % Eos % (Auto) % Baso % (Auto) % Neut # (Auto) (1.4-6.5) K/uL Lymph # (Auto) (1.2-3.4) K/uL [place] # (Auto) (0.11-0.59) K/uL Eos # (Auto) (0-0.5) K/uL Baso # (Auto) (0-0.2) K/uL Immature Gran # (Auto) (0.00-0.02) K/uL Polychromasia Hypochromasia Poikilocytosis Anisocytosis Ovalocytes Sodium (136-145) mmol/L Potassium (3.5-5.1) mmol/L Chloride (98-107) mmol/L Carbon Dioxide (21-32) mmol/L Anion Gap (3-11) BUN (7-18) mg/dl Creatinine (0.6-1.4) mg/dl Est Cr Clr Drug Dosing ml/min Est GFR ( Amer) ml/min Est GFR (Non-Af Amer) ml/min BUN/Creatinine Ratio (10-20) Glucose (70-99) mg/dl POC Glucose (70-99) mg/dl Calcium (8.5-10.1) mg/dl Magnesium (1.8-2.4) mg/dl Vitamin B12 213 (193-986) pg/ml Folate > 20.00 (>5.38) ng/ml Nasal Screen MRSA (PCR) (Negative) Stool Occult Bld Scrn (Negative) COVID-19 Eval Order Covid19 at [facility] SARS-CoV-2 (PCR) NEGATIVE (Negative) Blood Type Blood Type Recheck Antibody Screen Crossmatch 03/04/21 03/04/21 Range/Units 17:59 17:59 WBC (4.8-10.8) K/uL RBC (4.7-6.1) M/uL Hgb (14.0-18.0) g/dL Hct (42-52) % MCV (80-100) fL MCH (25-34) pg MCHC (32-36) g/dL RDW Std Deviation (36.4-46.3) fL RDW Coeff of Maria L (11.5-14.5) % Plt Count (130-400) K/uL MPV (7.4-10.4) fL Immature Gran % (Auto) 0.2 % Neut % (Auto) 60.0 % Lymph % (Auto) 28.3 % [place] % (Auto) 8.6 % Eos % (Auto) 2.4 % Baso % (Auto) 0.5 % Neut # (Auto) 7.42 H (1.4-6.5) K/uL Lymph # (Auto) 3.49 H (1.2-3.4) K/uL [place] # (Auto) 1.06 H (0.11-0.59) K/uL Eos # (Auto) 0.29 (0-0.5) K/uL Baso # (Auto) 0.06 (0-0.2) K/uL Immature Gran # (Auto) 0.02 (0.00-0.02) K/uL Polychromasia 1+ Hypochromasia Present Poikilocytosis Anisocytosis Present Ovalocytes 1+ Sodium (136-145) mmol/L Potassium (3.5-5.1) mmol/L Chloride (98-107) mmol/L Carbon Dioxide (21-32) mmol/L Anion Gap (3-11) BUN (7-18) mg/dl Creatinine (0.6-1.4) mg/dl Est Cr Clr Drug Dosing ml/min Est GFR ( Amer) ml/min Est GFR (Non-Af Amer) ml/min BUN/Creatinine Ratio (10-20) Glucose (70-99) mg/dl POC Glucose (70-99) mg/dl Calcium (8.5-10.1) mg/dl Magnesium (1.8-2.4) mg/dl Vitamin B12 (193-986) pg/ml Folate (>5.38) ng/ml Nasal Screen MRSA (PCR) (Negative) Stool Occult Bld Scrn (Negative) COVID-19 Eval Order SARS-CoV-2 (PCR) (Negative) Blood Type B Positive Blood Type Recheck Antibody Screen NEGATIVE Crossmatch See Detail PG Care Time/CCT Total # of Minutes Spent Total Time Spent with Patient: Total time spent is greater than 50% in coordination of care (as documented) at patient's floor/unit and/or counseling patient: Coding Level of Care Code 49110 Subseq Hosp Care Lvl 3 Diagnoses Anemia D64.89 Anemia type: other cause Other causes of anemia: other cause, not classified Abnormal CT scan R93.89 GI bleed K92.2 Pulmonary nodule R91.1 Thrombocytosis D47.3 B12 deficiency E53.8 Anxiety F41.9 Depression F32.9 Depression Type: unspecified DMII (diabetes mellitus, type 2) E11.69 Diabetes mellitus clinical interviewer insulin use: without clinical interviewer use Diabetes mellitus complication status: with other specified complication HTN (hypertension) I10 Hypertension type: essential hypertension Lower urinary tract symptoms (LUTS) R39.9 Restless legs syndrome with nocturnal myoclonus G25.81; G25.3 DVT prophylaxis Z29.9 (1) Anemia Anemia type: other cause Other causes of anemia: other cause, not classified Qualified Code(s): D64.89 - Other specified anemias (2) HTN (hypertension) Hypertension type: essential hypertension Qualified Code(s): I10 - Essential (primary) hypertension (3) DMII (diabetes mellitus, type 2) Diabetes mellitus intermediate insulin use: without clinical interviewer use Diabetes mellitus complication status: with other specified complication Qualified Code(s): E11.69 - Type 2 diabetes mellitus with other specified complication (4) Depression Depression Type: unspecified Qualified Code(s): F32.9 - Major depressive disorder, single episode, unspecified
[2021-03-05] MEDS ORDERED: OPTIRAY 320 150ml IV ONE (19:23)
[2021-03-05] MEDS: ENOXAPARIN INJ 40 MG/0.4 ML SYR SQ SCH (21:24)
[2021-03-05] MEDS: cloNIDine HCL 0.3 MG TAB PO SCH (21:24)
--- NOTE | 2021-03-05 22:25 | CT Scan Report ---
CT OF THE CHEST WITH IV CONTRAST CLINICAL HISTORY: f/u pulm nodule,with colon mass,looking for mets COMPARISON STUDY: No previous studies for comparison. TECHNIQUE: Following the IV administration of Optiray, CT of the thorax was performed from the thor acic inlet to the lung bases. Images are reviewed in the axial, sagittal, and coronal planes. IV cont rast was administered without complication. A dose lowering technique was utilized adhering to the p rinciples of ALARA. CT DOSE: 677.42 mGy.cm FINDINGS: There is no axillary, supra clavicle or internal mammary lymphadenopathy seen. Mediastinal lymph nodes are not enlarged. Visualized portion of thyroid gland shows no evidence of focal lesions. Esophagus is normal. Aorta is normal in caliber. Heart is normal in size without evidence of pericardial effusion. No coronary calcifications are seen . Tracheobronchial tree is patent. No infiltrates or consolidative lesions are seen. Linear densities are seen within lingula and subpleural aspect of the left lower lobe and could repre sent subsegmental atelectasis. -There is 16 mm subpleural irregular nodule is seen within posterior aspect of the left lower lobe (4 /243). There is adjacent small hypoattenuating collection within left lower lobe which might represen t loculated small left pleural effusion. No other pulmonary nodules seen. Evaluation of lung parenchyma is limited due to mild respiratory mot ion artifact. Limited evaluation of upper abdominal viscera shows no evidence of acute abnormalities. Osseous structures: Mild degenerative changes of the spine. IMPRESSION: 1. Large irregular pulmonary nodule within left lower lobe with questionable adjacent and possibly l oculated pleural effusion. Fibers are/follow-up evaluation is per clinical protocol. 2. No mediastinal lymphadenopathy seen. ACT 112: Positive. There are findings on this exam that require communication between the performing entity and the patient following Patient Test Result Information Act ([place] Act 112) guidelines. The above report was generated using voice recognition software. It may contain grammatical, syntax o r spelling errors. Electronically signed by: Estefany Foss DO 03/05/2021 10:23 PM
[2021-03-06 06:35] LABS: Hematocrit (blood only) 30.4 % (42-52); Hemoglobin 8.5 g/dL (14.0-18.0); Mean Corpuscular Hemoglobin 17.2 pg (25-34); Mean Corpuscular Volume 61.4 fL (80-100); Mean Platelet Volume 8.3 fL (7.4-10.4); Platelet Count 512 K/uL (130-400); RDW Coefficient of Variation 27.3 % (11.5-14.5); RDW Standard Deviation 59.5 fL (36.4-46.3); Red Blood Count 4.95 M/uL (4.7-6.1)
[2021-03-06 06:37] LABS: Anisocytosis Present; Basophils # (auto) 0.07 K/uL (0-0.2); Basophils % (auto) 0.7 %; Eosinophils # (auto) 0.41 K/uL (0-0.5); Eosinophils % (auto) 4.1 %; Hypochromasia Present; Immature Granulocytes # (auto) 0.03 K/uL (0.00-0.02); Immature Granulocytes % (auto) 0.3 %; Lymphocytes # (auto) 3.34 K/uL (1.2-3.4); Lymphocytes % (auto) 33.4 %; Microcytosis Present; Monocytes # (auto) 1.05 K/uL (0.11-0.59); Monocytes % (auto) 10.5 %; Ovalocytes 1+; Polychromasia 1+
[2021-03-06 06:43] LABS: Estimated Average Glucose 143 mg/dl; Hemoglobin A1C 6.6 % (4.5-5.6)
[2021-03-06 06:50] LABS: Calcium 8.5 mg/dl (8.5-10.1); Creatinine Clr Calc Pharmacy 102.1 ml/min; Est GFR (African American) 99.4 ml/min; Est GFR (Non-African American) 85.7 ml/min; Potassium 3.6 mmol/L (3.5-5.1)
[2021-03-06] MEDS: INSULIN ASPART 100 UNITS/ML 3 ML PEN SC SCH ×4 (09:19→21:43)
[2021-03-06] MEDS: TOPIRAMATE 100 MG TAB PO SCH ×2 (09:40→21:09)
[2021-03-06] MEDS: ENALAPRIL MALEATE 5 MG TAB PO SCH (09:40)
[2021-03-06] MEDS: cloNIDine HCL 0.1 MG TAB PO SCH (09:41)
[2021-03-06] MEDS: SERTRALINE HCL 100 MG TABLET PO SCH (09:41)
[2021-03-06] MEDS: busPIRone 5 MG TAB PO SCH (09:41)
[2021-03-06] MEDS: IRON SUCROSE 300 MG in SODIUM CHLORIDE 0.9% 250 ML IV SCH (09:42)
[2021-03-06] MEDS: METOPROLOL TARTRATE 25 MG TAB PO SCH ×2 (09:42→21:09)
[2021-03-06] MEDS: CYANOCOBALAMIN 1000 MCG/ML VIAL IM SCH (09:43)
--- NOTE | 2021-03-06 18:22 | Hospitalist Progress Note ---
Date of Service March 06, 2021 Assessment & Plan (1) Anemia: Multifactorial with microcytic hypochromic. Hgb 6.1 on admission No gross bleeding anywhere prior to admission CT abd/pel with 8cm segment of bowel wall thickening in prox descending colon w/ associated mesenteric TORY--> highly suspicious for colon mass no liver lesions, normal LFTs With strong +FH of sister with ovarian CA age 42, Brother with colon CA age 52, and grandfather with colon CA Most likely all occult blood loss from colon mass -given 2 units pRBCs and hgb up to 8.5 and stable -will give Venofer 300mg IV daily x 3 days (iron studies not drawn prior to transfusion being given)-last day will be 03/07 -follow CBC in AM -ok to give Lovenox for DVT proph given high risk of VTE in setting of hospitalization and possible malignancy -also B12 low at 250--> give IM B12 1000 mcg daily x 3 days -check CEA-pending (2) Abnormal CT scan: 1. An 8 cm segment of moderate bowel wall thickening involving the proximal descending colon with associated pericolonic/mesenteric lymphadenopathy as described above. This is highly suspicious for a colonic mass. GI consultation recommended for follow-up colonoscopy. 2. There is a 1.4 cm irregular nodule within the left lower lobe posteriorly abutting the pleura with a trace left pleural effusion. This could represent neoplasm/metastatic disease. Follow-up PET scan recommended for further evaluation. Gastroenterology consult placed evaluate for malignancy -plan for colonoscopy on Monday as no obstruction -check CEA-pending -continue clears today and tomorrow, NPO after midnight Sun for scope Monday (3) GI bleed: as above Hemeoccult stool positive (4) Pulmonary nodule: 1.4 LLL nodule with small effusion Does have a h/o severe PNA in his 20s Former smoker but quit 20 years ago Could be metastatic disease Radiology recommends PET scan CT chest here also with large irregular pulmonary nodule within left lower lobe measuring 1.6 cm with questionable adjacent possibly loculated pleural effusion Discussed and reviewed CT with pulmonology-recommends PET scan as an outpatient (5) Thrombocytosis: 600s and now down to 500s, likely reactive secondary to severe Fe-def anemia follow CBC (6) B12 deficiency: as above replace as above with IM B12 (7) Depression: Anxiety/depression Continue sertaline, buspirone, topiramate (8) Anxiety: continue home meds as above (9) DMII (diabetes mellitus, type 2): Hold metformin from home -accuchecks, Novolog achs Hemoglobin A1c well controlled at 6.6% (10) HTN (hypertension): BPs controlled - Continue Clonidine, metoprolol, and enalapril (11) Lower urinary tract symptoms (LUTS): hesitation with starting urine was a complaint upon admission-this is now resolved bladder scan qshift to check PVRs-minimal at 40 mL Make bladder scans as needed (12) Restless legs syndrome with nocturnal myoclonus: new onset in last few months, severe limb movement at times most likely due to severe iron deficiency replacing iron and received PRBCs (13) DVT prophylaxis: Lovenox SQ Dispo-continued stay, awaiting colonoscopy on Monday Admission and Anticipated Discharge Date Admission Date: March 04, 2021 Subjective Patient has no complaints, he has not had a bowel movement today and has not had any rectal bleeding. He denies any nausea. No shortness of breath. We discussed his CT of the chest results. I reviewed the CT scan with vacuum conditioner operator and the pocket of fluid is too small to aspirate-recommends PET scan as an outpatient. Patient denies abdominal pain. He is tolerating clear liquids diet today. Review of Systems Review of Systems: All systems reviewed & are unremarkable except as noted in HPI & below Physical Exam Constitutional: WD/WN, vitals as above Eyes: + anicteric sclerae Neck: trachea midline, no thyromegaly Respiratory: normal respiratory effort, lungs clear to auscultation Cardiovascular: RRR, no murmur, no edema Extremities: no calf tenderness Chest (Breasts): Chest: normal inspection of chest Gastrointestinal (Abdomen): normal bowel sounds, soft, nontender, no hepatosplenomegaly Musculoskeletal: Extremities: extremities normal to inspection; no cyanosis and no clubbing Skin: no rashes, warm and dry Neurologic: moves all extremities and awake; no focal motor deficits Psychiatric: A+Ox3, euthymic affect Lymphatic: no lymphedema Results & Data Results & Data ([facility]) Vital Signs (Past 12 Hours) Vital Signs Temp Pulse Resp BP Pulse Ox 03/06/21 15:00 36.5 C 61 16 114/76 97 03/06/21 08:24 36.8 C 61 18 116/74 97 Laboratory Results 03/06/21 03/06/21 03/06/21 Range/Units 17:12 12:11 08:20 WBC (4.8-10.8) K/uL RBC (4.7-6.1) M/uL Hgb (14.0-18.0) g/dL Hct (42-52) % MCV (80-100) fL MCH (25-34) pg MCHC (32-36) g/dL RDW Std Deviation (36.4-46.3) fL RDW Coeff of Maria L (11.5-14.5) % Plt Count (130-400) K/uL MPV (7.4-10.4) fL Immature Gran % (Auto) % Neut % (Auto) % Lymph % (Auto) % [place] % (Auto) % Eos % (Auto) % Baso % (Auto) % Neut # (Auto) (1.4-6.5) K/uL Lymph # (Auto) (1.2-3.4) K/uL [place] # (Auto) (0.11-0.59) K/uL Eos # (Auto) (0-0.5) K/uL Baso # (Auto) (0-0.2) K/uL Immature Gran # (Auto) (0.00-0.02) K/uL Polychromasia Hypochromasia Anisocytosis Microcytosis Ovalocytes Sodium (136-145) mmol/L Potassium (3.5-5.1) mmol/L Chloride (98-107) mmol/L Carbon Dioxide (21-32) mmol/L Anion Gap (3-11) BUN (7-18) mg/dl Creatinine (0.6-1.4) mg/dl Est Cr Clr Drug Dosing ml/min Est GFR ( Amer) ml/min Est GFR (Non-Af Amer) ml/min BUN/Creatinine Ratio (10-20) Glucose (70-99) mg/dl POC Glucose 93 104 H 112 H (70-99) mg/dl Estimat Average Glucose mg/dl Hemoglobin A1c (4.5-5.6) % Calcium (8.5-10.1) mg/dl Carcinoembryonic Ag 06/05/21 06/05/21 06/05/21 Range/Units 05:47 05:47 05:47 WBC (4.8-10.8) K/uL RBC (4.7-6.1) M/uL Hgb (14.0-18.0) g/dL Hct (42-52) % MCV (80-100) fL MCH (25-34) pg MCHC (32-36) g/dL RDW Std Deviation (36.4-46.3) fL RDW Coeff of Maria L (11.5-14.5) % Plt Count (130-400) K/uL MPV (7.4-10.4) fL Immature Gran % (Auto) % Neut % (Auto) % Lymph % (Auto) % [place] % (Auto) % Eos % (Auto) % Baso % (Auto) % Neut # (Auto) (1.4-6.5) K/uL Lymph # (Auto) (1.2-3.4) K/uL [place] # (Auto) (0.11-0.59) K/uL Eos # (Auto) (0-0.5) K/uL Baso # (Auto) (0-0.2) K/uL Immature Gran # (Auto) (0.00-0.02) K/uL Polychromasia Hypochromasia Anisocytosis Microcytosis Ovalocytes Sodium 142 (136-145) mmol/L Potassium 3.6 (3.5-5.1) mmol/L Chloride 112 H (98-107) mmol/L Carbon Dioxide 24 (21-32) mmol/L Anion Gap 6.0 (3-11) BUN 8 (7-18) mg/dl Creatinine 1.01 (0.6-1.4) mg/dl Est Cr Clr Drug Dosing 102.1 ml/min Est GFR ( Amer) 99.4 ml/min Est GFR (Non-Af Amer) 85.7 ml/min BUN/Creatinine Ratio 8.0 L (10-20) Glucose 95 (70-99) mg/dl POC Glucose (70-99) mg/dl Estimat Average Glucose 143 mg/dl Hemoglobin A1c 6.6 H (4.5-5.6) % Calcium 8.5 (8.5-10.1) mg/dl Carcinoembryonic Ag Pending 06/05/21 06/04/21 Range/Units 05:47 20:53 WBC 10.00 (4.8-10.8) K/uL RBC 4.95 (4.7-6.1) M/uL Hgb 8.5 L (14.0-18.0) g/dL Hct 30.4 L (42-52) % MCV 61.4 L (80-100) fL MCH 17.2 L (25-34) pg MCHC 28.0 L (32-36) g/dL RDW Std Deviation 59.5 H (36.4-46.3) fL RDW Coeff of Maria L 27.3 H (11.5-14.5) % Plt Count 512 H (130-400) K/uL MPV 8.3 (7.4-10.4) fL Immature Gran % (Auto) 0.3 % Neut % (Auto) 51.0 % Lymph % (Auto) 33.4 % [place] % (Auto) 10.5 % Eos % (Auto) 4.1 % Baso % (Auto) 0.7 % Neut # (Auto) 5.10 (1.4-6.5) K/uL Lymph # (Auto) 3.34 (1.2-3.4) K/uL [place] # (Auto) 1.05 H (0.11-0.59) K/uL Eos # (Auto) 0.41 (0-0.5) K/uL Baso # (Auto) 0.07 (0-0.2) K/uL Immature Gran # (Auto) 0.03 H (0.00-0.02) K/uL Polychromasia 1+ Hypochromasia Present Anisocytosis Present Microcytosis Present Ovalocytes 1+ Sodium (136-145) mmol/L Potassium (3.5-5.1) mmol/L Chloride (98-107) mmol/L Carbon Dioxide (21-32) mmol/L Anion Gap (3-11) BUN (7-18) mg/dl Creatinine (0.6-1.4) mg/dl Est Cr Clr Drug Dosing ml/min Est GFR ( Amer) ml/min Est GFR (Non-Af Amer) ml/min BUN/Creatinine Ratio (10-20) Glucose (70-99) mg/dl POC Glucose 99 (70-99) mg/dl Estimat Average Glucose mg/dl Hemoglobin A1c (4.5-5.6) % Calcium (8.5-10.1) mg/dl Carcinoembryonic Ag Diagnostic Findings Chest CT 03/05/21 19:01 CT OF THE CHEST WITH IV CONTRAST CLINICAL HISTORY: f/u pulm nodule,with colon mass,looking for mets COMPARISON STUDY: No previous studies for comparison. TECHNIQUE: Following the IV administration of Optiray, CT of the thorax was performed from the thoracic inlet to the lung bases. Images are reviewed in the axial, sagittal, and coronal planes. IV contrast was administered without complication. A dose lowering technique was utilized adhering to the principles of ALARA. CT DOSE: 677.42 mGy.cm FINDINGS: There is no axillary, supra clavicle or internal mammary lymphadenopathy seen. Mediastinal lymph nodes are not enlarged. Visualized portion of thyroid gland shows no evidence of focal lesions. Esophagus is normal. Aorta is normal in caliber. Heart is normal in size without evidence of pericardial effusion. No coronary calcifications are seen. Tracheobronchial tree is patent. No infiltrates or consolidative lesions are seen. Linear densities are seen within lingula and subpleural aspect of the left lower lobe and could represent subsegmental atelectasis. -There is 16 mm subpleural irregular nodule is seen within posterior aspect of the left lower lobe (4/243). There is adjacent small hypoattenuating collection within left lower lobe which might represent loculated small left pleural effusion. No other pulmonary nodules seen. Evaluation of lung parenchyma is limited due to mild respiratory motion artifact. Limited evaluation of upper abdominal viscera shows no evidence of acute abnormalities. Osseous structures: Mild degenerative changes of the spine. IMPRESSION: 1. Large irregular pulmonary nodule within left lower lobe with questionable adjacent and possibly loculated pleural effusion. Fibers are/follow-up evaluation is per clinical protocol. 2. No mediastinal lymphadenopathy seen. ACT 112: Positive. There are findings on this exam that require communication between the performing entity and the patient following Patient Test Result Information Act ([place] Act 112) guidelines. The above report was generated using voice recognition software. It may contain grammatical, syntax or spelling errors. Electronically signed by: Estefany Foss DO 03/05/2021 10:23 PM PG Care Time/CCT Total # of Minutes Spent Total Time Spent with Patient: Total time spent is greater than 50% in coordination of care (as documented) at patient's floor/unit and/or counseling patient: Coding Level of Care Code 96156 Subseq Hosp Care Lvl 2 Diagnoses Anemia D64.89 Anemia type: other cause Other causes of anemia: other cause, not classified Abnormal CT scan R93.89 GI bleed K92.2 Pulmonary nodule R91.1 Thrombocytosis D47.3 B12 deficiency E53.8 Depression F32.9 Depression Type: unspecified Anxiety F41.9 DMII (diabetes mellitus, type 2) E11.69 Diabetes mellitus complication status: with other specified complication Diabetes mellitus retirement insulin use: without retirement use HTN (hypertension) I10 Hypertension type: essential hypertension Lower urinary tract symptoms (LUTS) R39.9 Restless legs syndrome with nocturnal myoclonus G25.81; G25.3 DVT prophylaxis Z29.9 (1) DMII (diabetes mellitus, type 2) Diabetes mellitus complication status: with other specified complication Diabetes mellitus terminal gauger supervisor insulin use: without retirement use Qualified Code(s): E11.69 - Type 2 diabetes mellitus with other specified complication (2) Anemia Anemia type: other cause Other causes of anemia: other cause, not classified Qualified Code(s): D64.89 - Other specified anemias (3) Depression Depression Type: unspecified Qualified Code(s): F32.9 - Major depressive disorder, single episode, unspecified (4) HTN (hypertension) Hypertension type: essential hypertension Qualified Code(s): I10 - Essential (primary) hypertension
[2021-03-06] MEDS: cloNIDine HCL 0.3 MG TAB PO SCH (21:09)
[2021-03-06] MEDS: ENOXAPARIN INJ 40 MG/0.4 ML SYR SQ SCH (21:10)
[2021-03-07 05:48] LABS: Hemoglobin 8.9 g/dL (14.0-18.0); Mean Corpuscular Hgb Conc 27.8 g/dL (32-36); Mean Corpuscular Volume 61.3 fL (80-100); Mean Platelet Volume 8.3 fL (7.4-10.4); Platelet Count 466 K/uL (130-400); RDW Coefficient of Variation 28.1 % (11.5-14.5); RDW Standard Deviation 59.6 fL (36.4-46.3); Red Blood Count 5.22 M/uL (4.7-6.1); White Blood Count 10.83 K/uL (4.8-10.8)
[2021-03-07 06:01] LABS: Anisocytosis Present; Basophils # (auto) 0.06 K/uL (0-0.2); Basophils % (auto) 0.6 %; Eosinophils # (auto) 0.49 K/uL (0-0.5); Eosinophils % (auto) 4.5 %; Hypochromasia Present; Immature Granulocytes # (auto) 0.04 K/uL (0.00-0.02); Immature Granulocytes % (auto) 0.4 %; Lymphocytes # (auto) 2.72 K/uL (1.2-3.4); Lymphocytes % (auto) 25.1 %; Microcytosis Present; Monocytes # (auto) 1.11 K/uL (0.11-0.59); Monocytes % (auto) 10.2 %; Neutrophils # (auto) 6.41 K/uL (1.4-6.5); Neutrophils % (auto) 59.2 %; Ovalocytes 1+; Polychromasia 1+
[2021-03-07 06:23] LABS: BUN Creatinine Ratio 8.2 (10-20); Calcium 8.7 mg/dl (8.5-10.1); Creatinine Clr Calc Pharmacy 112.1 ml/min; Est GFR (African American) 111.2 ml/min; Potassium 3.9 mmol/L (3.5-5.1)
[2021-03-07] MEDS: IRON SUCROSE 300 MG in SODIUM CHLORIDE 0.9% 250 ML IV SCH (08:16)
[2021-03-07] MEDS: TOPIRAMATE 100 MG TAB PO SCH ×2 (08:16→20:51)
[2021-03-07] MEDS: ENALAPRIL MALEATE 5 MG TAB PO SCH (08:17)
[2021-03-07] MEDS: METOPROLOL TARTRATE 25 MG TAB PO SCH ×2 (08:17→20:51)
[2021-03-07] MEDS: busPIRone 5 MG TAB PO SCH (08:18)
[2021-03-07] MEDS: cloNIDine HCL 0.1 MG TAB PO SCH (08:18)
[2021-03-07] MEDS: SERTRALINE HCL 100 MG TABLET PO SCH (08:18)
[2021-03-07] MEDS: CYANOCOBALAMIN 1000 MCG/ML VIAL IM SCH (08:19)
[2021-03-07] MEDS: INSULIN ASPART 100 UNITS/ML 3 ML PEN SC SCH ×4 (08:20→21:07)
--- NOTE | 2021-03-07 13:54 | Hospitalist Progress Note ---
Date of Service March 07, 2021 Assessment & Plan (1) Anemia: Multifactorial with microcytic hypochromic. Hgb 6.5 on admission No gross bleeding anywhere prior to admission CT abd/pel with 8cm segment of bowel wall thickening in prox descending colon w/ associated mesenteric TORY--> highly suspicious for colon mass no liver lesions, normal LFTs With strong +FH of sister with ovarian CA age 42, Brother with colon CA age 52, and grandfather with colon CA Most likely all occult blood loss from colon mass -given 2 units pRBCs and hgb now up to 8.9 and stable -will give Venofer 300mg IV daily x 3 days (iron studies not drawn prior to transfusion being given)-last day will be 03/07 -follow CBC in AM -ok to give Lovenox for DVT proph given high risk of VTE in setting of hospitalization and possible malignancy, but will HOLD for procedure on Monday -also B12 low at 250--> gave IM B12 1000 mcg daily x 3 days and now transition to B12 500mcg po daily -check CEA-pending (2) Abnormal CT scan: 1. An 8 cm segment of moderate bowel wall thickening involving the proximal descending colon with associated pericolonic/mesenteric lymphadenopathy as described above. This is highly suspicious for a colonic mass. GI consultation recommended for follow-up colonoscopy. 2. There is a 1.4 cm irregular nodule within the left lower lobe posteriorly abutting the pleura with a trace left pleural effusion. This could represent neoplasm/metastatic disease. Follow-up PET scan recommended for further evaluation. Gastroenterology consult placed evaluate for malignancy -plan for colonoscopy on Monday as no obstruction -check CEA-pending -continue clears today, NPO after midnight Sun for C-scope Monday -bowel prep ordered for 1500 today (3) GI bleed: as above Hemeoccult stool positive (4) Pulmonary nodule: 1.4 LLL nodule with small effusion Does have a h/o severe PNA in his 20s Former smoker but quit 20 years ago Could be metastatic disease Radiology recommends PET scan CT chest here also with large irregular pulmonary nodule within left lower lobe measuring 1.6 cm with questionable adjacent possibly loculated pleural effusion Discussed and reviewed CT with pulmonology-recommends PET scan as an outpatient (5) Thrombocytosis: 600s and now down to 400s, likely reactive secondary to severe Fe-def anemia follow CBC (6) B12 deficiency: as above replace as above with IM B12 and start po B12 tomorrow (7) Depression: Anxiety/depression Continue sertaline, buspirone, topiramate (8) Anxiety: continue home meds as above (9) DMII (diabetes mellitus, type 2): Hold metformin from home -accuchecks, Novolog achs glucose here excellent Hemoglobin A1c well controlled at 6.6% (10) HTN (hypertension): BPs controlled - Continue Clonidine, metoprolol, and enalapril (11) Lower urinary tract symptoms (LUTS): hesitation with starting urine was a complaint upon admission-this is now resolved bladder scan qshift to check PVRs-minimal at 40 mL Make bladder scans as needed (12) Restless legs syndrome with nocturnal myoclonus: new onset in last few months, severe limb movement at times most likely due to severe iron deficiency replacing iron and received PRBCs Has no further complaints of this (13) DVT prophylaxis: Lovenox SQ Dispo-continued stay, awaiting colonoscopy on Monday. Further disposition from there to be determined based on colonoscopy findings Will need outpatient PET scan arranged for lung nodule as well as colon mass if found to be malignant Admission and Anticipated Discharge Date Admission Date: March 04, 2021 Subjective Pt has no complaints. He had a BM this AM and had no gross blood. No abd pain, no chest pain or SOB. No nausea. Review of Systems Review of Systems: All systems reviewed & are unremarkable except as noted in HPI & below no trouble with urinating now Physical Exam Constitutional: WD/WN, vitals as above Eyes: + anicteric sclerae Neck: trachea midline, no thyromegaly Respiratory: normal respiratory effort, lungs clear to auscultation Cardiovascular: RRR, no murmur, no edema Extremities: no calf tenderness Chest (Breasts): Chest: normal inspection of chest Gastrointestinal (Abdomen): normal bowel sounds, soft, nontender, no hepatosplenomegaly Musculoskeletal: Extremities: extremities normal to inspection; no cyanosis and no clubbing Skin: no rashes, warm and dry Neurologic: moves all extremities and awake; no focal motor deficits Psychiatric: A+Ox3, euthymic affect Lymphatic: no lymphedema Results & Data Results & Data ([facility]) Vital Signs (Past 12 Hours) Vital Signs Temp Pulse Pulse Resp BP BP Pulse Ox 03/07/21 10:57 36.8 C 60 14 92/52 L 95/58 L 96 03/07/21 08:10 60 121/69 03/07/21 07:44 36.7 C 61 16 100/67 98 Laboratory Results 03/07/21 03/07/21 03/07/21 Range/Units 12:03 07:49 05:28 WBC (4.8-10.8) K/uL RBC (4.7-6.1) M/uL Hgb (14.0-18.0) g/dL Hct (42-52) % MCV (80-100) fL MCH (25-34) pg MCHC (32-36) g/dL RDW Std Deviation (36.4-46.3) fL RDW Coeff of Maria L (11.5-14.5) % Plt Count (130-400) K/uL MPV (7.4-10.4) fL Immature Gran % (Auto) % Neut % (Auto) % Lymph % (Auto) % [place] % (Auto) % Eos % (Auto) % Baso % (Auto) % Neut # (Auto) (1.4-6.5) K/uL Lymph # (Auto) (1.2-3.4) K/uL [place] # (Auto) (0.11-0.59) K/uL Eos # (Auto) (0-0.5) K/uL Baso # (Auto) (0-0.2) K/uL Immature Gran # (Auto) (0.00-0.02) K/uL Polychromasia Hypochromasia Anisocytosis Microcytosis Ovalocytes Sodium 142 (136-145) mmol/L Potassium 3.9 (3.5-5.1) mmol/L Chloride 113 H (98-107) mmol/L Carbon Dioxide 24 (21-32) mmol/L Anion Gap 6.0 (3-11) BUN 8 (7-18) mg/dl Creatinine 0.92 (0.6-1.4) mg/dl Est Cr Clr Drug Dosing 112.1 ml/min Est GFR ( Amer) 111.2 ml/min Est GFR (Non-Af Amer) 96.0 ml/min BUN/Creatinine Ratio 8.2 L (10-20) Glucose 98 (70-99) mg/dl POC Glucose 95 105 H (70-99) mg/dl Calcium 8.7 (8.5-10.1) mg/dl 03/07/21 03/06/21 03/06/21 Range/Units 05:28 21:07 21:07 WBC 10.83 H (4.8-10.8) K/uL RBC 5.22 (4.7-6.1) M/uL Hgb 8.9 L (14.0-18.0) g/dL Hct 32.0 L (42-52) % MCV 61.3 L (80-100) fL MCH 17.0 L (25-34) pg MCHC 27.8 L (32-36) g/dL RDW Std Deviation 59.6 H (36.4-46.3) fL RDW Coeff of Maria L 28.1 H (11.5-14.5) % Plt Count 466 H (130-400) K/uL MPV 8.3 (7.4-10.4) fL Immature Gran % (Auto) 0.4 % Neut % (Auto) 59.2 % Lymph % (Auto) 25.1 % [place] % (Auto) 10.2 % Eos % (Auto) 4.5 % Baso % (Auto) 0.6 % Neut # (Auto) 6.41 (1.4-6.5) K/uL Lymph # (Auto) 2.72 (1.2-3.4) K/uL [place] # (Auto) 1.11 H (0.11-0.59) K/uL Eos # (Auto) 0.49 (0-0.5) K/uL Baso # (Auto) 0.06 (0-0.2) K/uL Immature Gran # (Auto) 0.04 H (0.00-0.02) K/uL Polychromasia 1+ Hypochromasia Present Anisocytosis Present Microcytosis Present Ovalocytes 1+ Sodium (136-145) mmol/L Potassium (3.5-5.1) mmol/L Chloride (98-107) mmol/L Carbon Dioxide (21-32) mmol/L Anion Gap (3-11) BUN (7-18) mg/dl Creatinine (0.6-1.4) mg/dl Est Cr Clr Drug Dosing ml/min Est GFR ( Amer) ml/min Est GFR (Non-Af Amer) ml/min BUN/Creatinine Ratio (10-20) Glucose (70-99) mg/dl POC Glucose 92 92 (70-99) mg/dl Calcium (8.5-10.1) mg/dl 03/06/21 Range/Units 17:12 WBC (4.8-10.8) K/uL RBC (4.7-6.1) M/uL Hgb (14.0-18.0) g/dL Hct (42-52) % MCV (80-100) fL MCH (25-34) pg MCHC (32-36) g/dL RDW Std Deviation (36.4-46.3) fL RDW Coeff of Maria L (11.5-14.5) % Plt Count (130-400) K/uL MPV (7.4-10.4) fL Immature Gran % (Auto) % Neut % (Auto) % Lymph % (Auto) % [place] % (Auto) % Eos % (Auto) % Baso % (Auto) % Neut # (Auto) (1.4-6.5) K/uL Lymph # (Auto) (1.2-3.4) K/uL [place] # (Auto) (0.11-0.59) K/uL Eos # (Auto) (0-0.5) K/uL Baso # (Auto) (0-0.2) K/uL Immature Gran # (Auto) (0.00-0.02) K/uL Polychromasia Hypochromasia Anisocytosis Microcytosis Ovalocytes Sodium (136-145) mmol/L Potassium (3.5-5.1) mmol/L Chloride (98-107) mmol/L Carbon Dioxide (21-32) mmol/L Anion Gap (3-11) BUN (7-18) mg/dl Creatinine (0.6-1.4) mg/dl Est Cr Clr Drug Dosing ml/min Est GFR ( Amer) ml/min Est GFR (Non-Af Amer) ml/min BUN/Creatinine Ratio (10-20) Glucose (70-99) mg/dl POC Glucose 93 (70-99) mg/dl Calcium (8.5-10.1) mg/dl PG Care Time/CCT Total # of Minutes Spent Total Time Spent with Patient: Total time spent is greater than 50% in coordination of care (as documented) at patient's floor/unit and/or counseling patient: Coding Level of Care Code 85472 Subseq Hosp Care Lvl 2 Diagnoses Anemia D64.89 Anemia type: other cause Other causes of anemia: other cause, not classified Abnormal CT scan R93.89 GI bleed K92.2 Pulmonary nodule R91.1 Thrombocytosis D47.3 B12 deficiency E53.8 Depression F32.9 Depression Type: unspecified Anxiety F41.9 DMII (diabetes mellitus, type 2) E11.69 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 use Diabetes mellitus complication status: with other specified complication HTN (hypertension) I10 Hypertension type: essential hypertension Lower urinary tract symptoms (LUTS) R39.9 Restless legs syndrome with nocturnal myoclonus G25.81; G25.3 DVT prophylaxis Z29.9 (1) Anemia Anemia type: other cause Other causes of anemia: other cause, not classified Qualified Code(s): D64.89 - Other specified anemias (2) Depression Depression Type: unspecified Qualified Code(s): F32.9 - Major depressive disorder, single episode, unspecified (3) DMII (diabetes mellitus, type 2) Diabetes mellitus retirement insulin use: without pipe bowls paint trimmer use Diabetes mellitus complication status: with other specified complication Qualified Code(s): E11.69 - Type 2 diabetes mellitus with other specified complication (4) HTN (hypertension) Hypertension type: essential hypertension Qualified Code(s): I10 - Essential (primary) hypertension
[2021-03-07] MEDS ORDERED: LAVAGE SOLUTION 4000ML PO SCH (15:00)
[2021-03-07] MEDS: cloNIDine HCL 0.3 MG TAB PO SCH (20:51)
[2021-03-08] MEDS ORDERED: Nursing to Pharmacy Communication SCH ×2 (01:15→11:30)
[2021-03-08 05:54] LABS: Hemoglobin 8.7 g/dL (14.0-18.0); Mean Corpuscular Hemoglobin 17.3 pg (25-34); Mean Corpuscular Hgb Conc 27.2 g/dL (32-36); Mean Corpuscular Volume 63.6 fL (80-100); Mean Platelet Volume 8.3 fL (7.4-10.4); Platelet Count 454 K/uL (130-400); RDW Coefficient of Variation 28.9 % (11.5-14.5); RDW Standard Deviation 62.5 fL (36.4-46.3); Red Blood Count 5.03 M/uL (4.7-6.1)
[2021-03-08] MEDS ORDERED: INSULIN ASPART 100 UNITS/ML 3 ML PEN SC SCH (06:00)
[2021-03-08 06:16] LABS: Anisocytosis Present; BUN Creatinine Ratio 6.3 (10-20); Basophils # (auto) 0.05 K/uL (0-0.2); Basophils % (auto) 0.5 %; Calcium 8.4 mg/dl (8.5-10.1); Creatinine Clr Calc Pharmacy 108.6 ml/min; Eosinophils # (auto) 0.42 K/uL (0-0.5); Eosinophils % (auto) 3.8 %; Est GFR (Non-African American) 92.3 ml/min; Hypochromasia Present; Immature Granulocytes # (auto) 0.03 K/uL (0.00-0.02); Immature Granulocytes % (auto) 0.3 %; Lymphocytes # (auto) 2.54 K/uL (1.2-3.4); Lymphocytes % (auto) 22.9 %; Microcytosis Present; Monocytes # (auto) 1.21 K/uL (0.11-0.59); Monocytes % (auto) 10.9 %; Neutrophils # (auto) 6.85 K/uL (1.4-6.5); Neutrophils % (auto) 61.6 %; Ovalocytes 1+; Polychromasia 1+
--- NOTE | 2021-03-08 08:09 | Anesthesiology Consultation ---
Date of Service March 08, 2021 Assessment & Plan Chart Review Chart Review: Acceptable Risk for Surgery, Patient NOT seen in Pre Admission Testing and entry level account representative initiated Consults Requested none History Surgery Operation Date: 03/08/21 16:30 Proposed Procedures p Colonoscopy Dr Esparza - Alison Esparza MD Height/Weight Height: 5 ft 8 in Weight: 106 kg Allergies Allergy/AdvReac Type Severity Reaction Status Date / Time shellfish derived Allergy Unknown ON MED LIST Verified 03/04/21 18:15 Medications Home Medications Medication Instructions Recorded Confirmed Last Taken buspirone 10 mg PO DAILY 03/04/21 03/04/21 03/04/21 clonidine HCl 0.1 mg PO DAILY 03/04/21 03/04/21 03/04/21 clonidine HCl 0.3 mg PO HS 03/04/21 03/04/21 03/03/21 enalapril maleate 5 mg PO DAILY 03/04/21 03/04/21 03/04/21 metformin 1,000 mg PO BID 03/04/21 03/04/21 03/04/21 07:30 metoprolol tartrate 25 mg PO BID 03/04/21 03/04/21 03/04/21 07:30 sertraline 200 mg PO DAILY 03/04/21 03/04/21 03/04/21 topiramate 200 mg PO BID 03/04/21 03/04/21 03/04/21 07:30 Active Medications Generic Name Dose Route Start Last Admin Trade Name Freq PRN Reason Stop Dose Admin Acetaminophen 650 mg 03/04/21 22:51 03/05/21 17:32 Acetaminophen 325 Mg Tab PO 04/03/21 22:50 650 mg Q4H PRN Administration pain/fever Buspirone HCl 10 mg 03/05/21 09:00 03/07/21 08:18 Buspirone 5 Mg Tab PO 04/04/21 08:59 10 mg DAILY DEAN Administration Clonidine HCl 0.1 mg 03/05/21 09:00 03/07/21 08:18 Clonidine Hcl 0.1 Mg Tab PO 04/04/21 08:59 0.1 mg DAILY DEAN Administration Clonidine HCl 0.3 mg 03/05/21 21:00 03/07/21 20:51 Clonidine Hcl 0.3 Mg Tab PO 04/04/21 20:59 0.3 mg HS DEAN Administration Enalapril Maleate 5 mg 03/06/21 09:00 03/07/21 08:17 Enalapril Maleate 5 Mg Tab PO 04/05/21 08:59 5 mg QAM DEAN Administration Enoxaparin Sodium 40 mg 03/05/21 22:00 03/06/21 21:10 Enoxaparin Inj 40 Mg/0.4 Ml Syr SQ 04/04/21 21:59 40 mg Q24H DEAN Administration Insulin Aspart 0 units 03/08/21 06:00 03/08/21 05:46 Insulin Aspart 100 Units/Ml 3 Ml Pen SC 04/07/21 05:59 Not Given Q6 DEAN Metoprolol Tartrate 25 mg 03/05/21 09:00 03/07/21 20:51 Metoprolol Tartrate 25 Mg Tab PO 04/04/21 08:59 25 mg BID DEAN Administration Polyethylene Glycol/Electrolytes 16 dose 03/07/21 15:00 03/07/21 16:42 Lavage Solution 4000ml PO 04/06/21 14:59 16 dose TODAY@1500 DEAN Administration Sertraline HCl 200 mg 03/05/21 09:00 03/07/21 08:18 Sertraline Hcl 100 Mg Tablet PO 04/04/21 08:59 200 mg DAILY DEAN Administration Topiramate 200 mg 03/05/21 09:00 03/07/21 20:51 Topiramate 100 Mg Tab PO 04/04/21 08:59 200 mg BID DEAN Administration NPO Date Last Intake of Fluids: 03/07/21 Time Last Intake of Fluids: 23:55 Date Last Intake of Solids: 03/06/21 Past Medical History Medical History (Updated 03/08/21 @ 08:08 by Eddie De Jesus MD) Anemia Anemia Anxiety B12 deficiency Depression DMII (diabetes mellitus, type 2) GI bleed HTN (hypertension) Pulmonary nodule Restless legs syndrome with nocturnal myoclonus Past Family History Family History Father Coronary heart disease Dyslipidemia Hypertension Mother Diabetes Dyslipidemia Sister Ovarian cancer Grandfather Colorectal cancer Social History Smoking Status: Former smoker Smoking End Date: 20 years ago Hx Alcohol Use: No Hx Substance Use: No Physical Exam Vital Signs Last Vital Signs Temp 36.6 C 03/08/21 07:42 Pulse 61 03/08/21 07:42 Resp 16 03/08/21 07:42 BP 104/66 03/08/21 07:42 Pulse Ox 98 03/08/21 07:42 Testing Laboratory Results 03/08/21 05:28 03/08/21 05:28 PT 9.8 Seconds (9.0-12.0) 03/04/21 17:59 INR 1.0 (0.9-1.1) 03/04/21 17:59 APTT 21.8 Seconds (21.0-31.0) 03/04/21 17:59 Hemoglobin A1c 6.6 % (4.5-5.6) H 03/06/21 05:47 Blood Type B Positive 03/04/21 17:59 Antibody Screen NEGATIVE 03/04/21 17:59 03/08/21 03/07/21 05:43 20:54 POC Glucose 109 H 92 Electrocardiogram est Reason : Blood Pressure : / mmHG Vent. Rate : 084 BPM Atrial Rate : 084 BPM P-R Int : 140 ms QRS Dur : 080 ms QT Int : 390 ms P-R-T Axes : 036 025 028 degrees QTc Int : 460 ms Normal sinus rhythm Low voltage QRS Borderline ECG No previous ECGs available Confirmed by Cornel Abdalla ([id number]) on 03/05/2021 7:54:01 AM Chest X-Ray XR chest 1V portable HISTORY: weakness COMPARISON: None. FINDINGS: The cardiac silhouette is mildly enlarged. The lungs are clear. No pleural effusions. No pneumothorax. Old, healed left-sided rib fractures. IMPRESSION: Mild cardiomegaly. Otherwise, no acute process within the chest.
[2021-03-08] MEDS ORDERED: PROPOFOL IV EMULSION 10 MG/ML 20 ML VIAL IV ONE ×3 (08:11→09:38)
[2021-03-08] MEDS ORDERED: LIDOCAINE 2% 2 ML VIAL/AMP(20MG/ML) INFIL ONE (08:11)
--- NOTE | 2021-03-08 08:31 | History & Physical Bridge Note ---
Date of Service March 08, 2021 History & Physical Bridge Note I have examined the patient, reviewed the History & Physical and in the interval since the performance of the History & Physical I have noted the following changes of clinical significance: no changes noted
[2021-03-08] MEDS ORDERED: KETAMINE 50 MG/5 ML SYRINGE ONE (08:33)
[2021-03-08] MEDS ORDERED: ENDOSCOPIC MARKER 5 ML SYR TOP ONE (09:03)
[2021-03-08] MEDS ORDERED: GLYCOPYRROLATE 0.2 MG/ML VIAL ONE (09:03)
--- NOTE | 2021-03-08 09:37 | GI REPORT ---
Patient Name: Ronen Rosen Procedure Date: 03/08/2021 8:48 AM Date of : 1970 Admit Type: Inpatient Age: 50 Gender: Male Attending MD: Alison Esparza MD Procedure: Colonoscopy Providers: Alison Esparza MD Referring MD: Jose A Ardon M.d. Indications: Abnormal CT of the GI tract Medicines: Propofol per Anesthesia Complications: No immediate complications. Estimated Blood Loss: Estimated blood loss: none. Procedure: Pre-Anesthesia Assessment: - Prior to the procedure, a History and Physical was performed, and patient medications, allergies and sensitivities were reviewed. The patient's tolerance of previous anesthesia was reviewed. - The risks and benefits of the procedure and the sedation options and risks were discussed with the patient. All questions were answered and informed consent was obtained. - Patient identification and proposed procedure were verified prior to the procedure by the physician and the nurse. The procedure was verified in the procedure room. - Pre-procedure physical examination revealed no contraindications to sedation. After I obtained informed consent, the scope was passed under direct vision. Throughout the procedure, the patient's blood pressure, pulse, and oxygen saturations were monitored continuously. The scope was introduced through the anus and advanced to the cecum, identified by appendiceal orifice and ileocecal valve. The Colonoscope was introduced through the and advanced to. The colonoscopy was performed without difficulty. The patient tolerated the procedure well. The quality of the bowel preparation was good. The terminal ileum, ileocecal valve, appendiceal orifice, and rectum were photographed. Findings: The perianal and digital rectal examinations were normal. A frond-like/villous, infiltrative and ulcerated partially obstructing large mass was found in the descending colon. The mass was circumferential (involving 100% of the lumen circumference). The mass measured ten cm in length. Oozing was present. Biopsies were taken with a cold forceps for histology. Verification of patient identification for the specimen was done by the physician and nurse using the patient's name and date. Area was tattooed with an injection of 4 mL of Spot (carbon black) proximally and distally to the mass. The retroflexed view of the distal rectum and anal verge was normal and showed no anal or rectal abnormalities. Impression: - Long segment, large, circumferential malignant partially obstructing tumor in the descending colon. Biopsied. Tattooed. Recommendation: - Return patient to [facility] for [facility] care. - Await pathology results. - Clear liquid diet. - Refer to a surgeon today, he would benefit from a subtotal colectomy if there is concern for Roche in view of his FHx of malignancy. Alison Esparza MD 03/08/2021 9:37:03 AM This report has been signed electronically. Note Initiated On: 03/08/2021 8:48 AM Number of Addenda: 0 I attest to the content of the Intraoperative Record and orders documented therein, exceptions below {[id number]}
--- NOTE | 2021-03-08 09:47 | Anesthesiology Progress Note ---
Date of Service March 08, 2021 Anesthesia Post Procedure Vital Signs Vital Signs: Temp Pulse Pulse Resp BP BP Pulse Ox 03/08/21 09:33 68 16 110/75 97 03/08/21 08:23 36.3 C L 63 18 115/71 98 03/08/21 07:42 36.6 C 61 16 104/66 98 03/07/21 21:50 36.7 C 65 18 113/65 100 03/07/21 17:04 36.4 C L 59 L 16 115/75 98 03/07/21 10:57 36.8 C 60 14 92/52 L 95/58 L 96 Transfer of Care Handoff Completed per policy Notes Mental Status: alert / awake / arousable and participated in evaluation Patient Amnestic to Procedure: Yes Nausea / Vomiting: adequately controlled Pain: adequately controlled Airway Patency, RR, SpO2: stable & adequate BP & HR: stable & adequate Hydration State: stable & adequate Anesthetic Complications: no major complications apparent and Pt Satisfied with anesthetic care
[2021-03-08] MEDS: TOPIRAMATE 100 MG TAB PO SCH ×2 (10:19→21:16)
[2021-03-08] MEDS: SERTRALINE HCL 100 MG TABLET PO SCH (10:19)
[2021-03-08] MEDS: METOPROLOL TARTRATE 25 MG TAB PO SCH ×2 (10:19→21:16)
[2021-03-08] MEDS: cloNIDine HCL 0.1 MG TAB PO SCH (10:20)
[2021-03-08] MEDS: ENALAPRIL MALEATE 5 MG TAB PO SCH (10:20)
[2021-03-08] MEDS: busPIRone 5 MG TAB PO SCH (10:20)
[2021-03-08] MEDS: CYANOCOBALAMIN 500 MCG TABLET (VITAMIN B-12) PO SCH (12:01)
[2021-03-08] MEDS: INSULIN ASPART 100 UNITS/ML 3 ML PEN SC SCH ×3 (13:10→21:53)
--- NOTE | 2021-03-08 13:59 | Surgery Consultation ---
Date of Consultation March 08, 2021 Assessment & Plan (1) Colonic mass: Newly diagnosed colon mass with pulmonary nodule. H&H has been stable after transfusion, no indication for urgent surgery. Await pathology results from today and will need outpatient PET, biopsy of pulmonary nodule, and onc ology consultation before surgical decision can be made. Will likely need referral to a tertiary center with colorectal and thoracic surgery. Supervising Physician Co-Signing Physician Notes Patient seen and examined, labs and imaging reviewed, agree with above. 50-year-old incarcerated male referred to emergency department for routine labs that showed a significant anemia. CT scan of his abdomen showed long segment thickening of the sigmoid/descending colon. He also had some lymphadenopathy in the area as well as a pulmonary nodule that was further evaluated the CT chest and is highly concerning for metastatic disease. He had a colonoscopy today which showed a long segment, approximately 10 cm circumferential lesion concerning for malignancy with no evidence of complete obstruction. On exam he is afebrile with stable vitals. He denies any melena or hematochezia. No change in bowel habits. His abdomen is soft, nontender, nondistended. His labs show a CEA of 5.7. CT was personally reviewed by myself and shows a long segment lesion in the left colon with a pulmonary nodule as well as lymphadenopathy in the mesentery. Pathology still pending for biopsies done today. 50-year-old male with likely left colon malignancy and strong familial history concerning for possible Roche syndrome, as well as suspected pulmonary metastatic disease. Recommend biopsy of pulmonary lesion, can discuss with IR and possibly pulmonology Recommend PET scan Recommend oncology consultation If pulmonary nodule is confirmed to be metastatic disease, then will likely need neoadjuvant or palliative chemotherapy. Also, if there is a concern for Roche syndrome may require total proctocolectomy or subtotal colectomy. This work-up can be done as an outpatient if necessary Surgery will follow, he may follow-up as an outpatient if necessary. He may also benefit from evaluation at a tertiary center pending upon the findings of these further studies. History of Present Illness Attending Physician: Jose A Ardon History of Present Illness 50 y/o male inmate admitted for anemia. CT showed descending colon thickening and 1.4 cm pulmonary nodule. Had colonoscopy today and descending colon mass was biopsied. He was otherwise asymptomatic. Has family history of grandfather with colon cancer, sister with ovarian cancer and brother with gastric or colon cancer. Allergies Allergy/AdvReac Type Severity Reaction Status Date / Time shellfish derived Allergy Unknown ON MED LIST Verified 03/08/21 08:28 Home Medications Medication Instructions Recorded Confirmed Type buspirone 10 mg PO DAILY 03/04/21 03/04/21 History clonidine HCl 0.1 mg PO DAILY 03/04/21 03/04/21 History clonidine HCl 0.3 mg PO HS 03/04/21 03/04/21 History enalapril maleate 5 mg PO DAILY 03/04/21 03/04/21 History metformin 1,000 mg PO BID 03/04/21 03/04/21 History metoprolol tartrate 25 mg PO BID 03/04/21 03/04/21 History sertraline 200 mg PO DAILY 03/04/21 03/04/21 History topiramate 200 mg PO BID 03/04/21 03/04/21 History Patient History Medical History Anemia Anemia Anxiety B12 deficiency Depression DMII (diabetes mellitus, type 2) GI bleed HTN (hypertension) Pulmonary nodule Restless legs syndrome with nocturnal myoclonus Family History Father Coronary heart disease Dyslipidemia Hypertension Mother Diabetes Dyslipidemia Sister Ovarian cancer Grandfather Colorectal cancer Social History Smoking Status: Former smoker Smoking End Date: 20 years ago; Hx Alcohol Use: No Hx Substance Use: No Preferred Language: Ukrainian Communication Ability: Effective Instructor Pilot Required: No Beliefs That Will Affect Care: None Current Living Situation Comment: [facility] Feels Safe at Home: Yes Safety Concerns: Feels Safe At This Time Assistive Devices: None Review of Systems 2 Gastrointestinal: no change in bowel habits, no change in stools, no constipation, no diarrhea/loose stools, no blood in stools and no melena Physical Exam Constitutional: WD/WN, vitals as above Respiratory: normal respiratory effort Gastrointestinal (Abdomen): Inspection/Auscultation: abdomen not distended Percussion/Palpation: abdomen nontender and + abdomen not soft Results & Data ([place]) Vital Signs (Past 12 Hours) Vital Signs Temp Pulse Pulse Resp BP BP Pulse Ox 03/08/21 13:29 36.6 C 62 16 94/57 L 99 03/08/21 12:20 36.9 C 54 L 16 100 03/08/21 11:16 36.5 C 67 16 116/75 99 03/08/21 10:45 36.6 C 61 16 113/73 99 03/08/21 10:23 36.5 C 71 18 117/77 100 03/08/21 10:01 67 18 139/78 98 03/08/21 09:48 70 18 121/78 98 03/08/21 09:33 68 16 110/75 97 03/08/21 08:23 36.3 C L 63 18 115/71 98 03/08/21 07:42 36.6 C 61 16 104/66 98 PG Care Time/CCT Total # of Minutes Spent Total Time Spent with Patient: Total time spent is greater than 50% in coordination of care (as documented) at patient's floor/unit and/or counseling patient: Coding Level of Care Code 99012 Inpt Consult Level 2 Diagnoses Colonic mass K63.89
[2021-03-08] MEDS: cloNIDine HCL 0.3 MG TAB PO SCH (21:16)
--- NOTE | 2021-03-08 21:40 | Hospitalist Progress Note ---
Date of Service March 08, 2021 Assessment & Plan (1) Anemia: Multifactorial with microcytic hypochromic. Hgb 6.5 on admission No gross bleeding anywhere prior to admission CT abd/pel with 8cm segment of bowel wall thickening in prox descending colon w/ associated mesenteric TORY--> highly suspicious for colon mass no liver lesions, normal LFTs With strong +FH of sister with ovarian CA age 42, Brother with colon CA age 52, and grandfather with colon CA Most likely all occult blood loss from colon mass -S/P 2 units pRBCs and hgb now up to 8.9 and stable -will give Venofer 300mg IV daily x 3 days (iron studies not drawn prior to transfusion being given)-last day will be 03/07 -follow CBC in AM -Hold lovenox for now given anemia and GI bleed. -Colonosocpy is showing evidece of malignancy. -will consult Gen suregry. -also B12 low at 250--> gave IM B12 1000 mcg daily x 3 days and now transition to B12 500mcg po daily -check CEA-pending (2) Abnormal CT scan: 1. An 8 cm segment of moderate bowel wall thickening involving the proximal descending colon with associated pericolonic/mesenteric lymphadenopathy as described above. This is highly suspicious for a colonic mass. GI consultation recommended for follow-up colonoscopy. 2. There is a 1.4 cm irregular nodule within the left lower lobe posteriorly abutting the pleura with a trace left pleural effusion. This could represent neoplasm/metastatic disease. Follow-up PET scan recommended for further evaluation. Gastroenterology consult placed evaluate for malignancy -plan for colonoscopy on Monday as no obstruction -check CEA-pending -continue clears today, NPO after midnight Sun for C-scope Monday -bowel prep ordered for 1500 today (3) GI bleed: as above Hemeoccult stool positive (4) Pulmonary nodule: 1.4 LLL nodule with small effusion Does have a h/o severe PNA in his 20s Former smoker but quit 20 years ago Could be metastatic disease Radiology recommends PET scan CT chest here also with large irregular pulmonary nodule within left lower lobe measuring 1.6 cm with questionable adjacent possibly loculated pleural effusion Discussed and reviewed CT with pulmonology-recommends PET scan as an outpatient (5) Thrombocytosis: 600s and now down to 400s, likely reactive secondary to severe Fe-def anemia follow CBC (6) B12 deficiency: as above replace as above with IM B12 and start po B12 tomorrow (7) Depression: Anxiety/depression Continue sertaline, buspirone, topiramate (8) Anxiety: continue home meds as above (9) DMII (diabetes mellitus, type 2): Hold metformin from home -accuchecks, Novolog achs glucose here excellent Hemoglobin A1c well controlled at 6.6% (10) HTN (hypertension): BPs controlled - Continue Clonidine, metoprolol, and enalapril (11) Lower urinary tract symptoms (LUTS): hesitation with starting urine was a complaint upon admission-this is now resolved bladder scan qshift to check PVRs-minimal at 40 mL Make bladder scans as needed (12) Restless legs syndrome with nocturnal myoclonus: new onset in last few months, severe limb movement at times most likely due to severe iron deficiency replacing iron and received PRBCs Has no further complaints of this (13) DVT prophylaxis: Lovenox SQ Dispo-continued stay, awaiting colonoscopy on Monday. Further disposition from there to be determined based on colonoscopy findings Will need outpatient PET scan arranged for lung nodule as well as colon mass if found to be malignant Admission and Anticipated Discharge Date Admission Date: March 04, 2021 Subjective 50 yo male reports no new symptoms today. He reports feeling well. He has no new complaints. Review of Systems Review of Systems: All systems reviewed & are unremarkable except as noted in HPI & below Physical Exam Physical Exam: Constitutional: WD/WN, vitals as above Eyes: + anicteric sclerae Neck: trachea midline, no thyromegaly Respiratory: normal respiratory effort, lungs clear to auscultation Cardiovascular: RRR, no murmur, no edema Extremities: no calf tenderness Chest (Breasts): Chest: normal inspection of chest Gastrointestinal (Abdomen): normal bowel sounds, soft, nontender, no hepatosplenomegaly Musculoskeletal: Extremities: extremities normal to inspection; no cyanosis and no clubbing Skin: no rashes, warm and dry Neurologic: moves all extremities and awake; no focal motor deficits Psychiatric: A+Ox3, euthymic affect Lymphatic: no lymphedema Results & Data Results & Data ([facility]) Vital Signs (Past 12 Hours) Vital Signs Temp Pulse Pulse Resp BP BP Pulse Ox 03/08/21 21:13 64 113/68 03/08/21 19:33 36.8 C 71 16 127/76 98 03/08/21 14:48 37 C 62 16 105/72 98 03/08/21 13:29 36.6 C 62 16 94/57 L 99 03/08/21 12:20 36.9 C 54 L 16 100 03/08/21 11:16 36.5 C 67 16 116/75 99 03/08/21 10:45 36.6 C 61 16 113/73 99 03/08/21 10:23 36.5 C 71 18 117/77 100 03/08/21 10:01 67 18 139/78 98 03/08/21 09:48 70 18 121/78 98 PG Care Time/CCT Total # of Minutes Spent Total Time Spent with Patient: Total time spent is greater than 50% in coordination of care (as documented) at patient's floor/unit and/or counseling patient: Coding Level of Care Code 85961 Subseq Hosp Care Lvl 3 Diagnoses Anemia D64.89 Anemia type: other cause Other causes of anemia: other cause, not classified Abnormal CT scan R93.89 GI bleed K92.2 Pulmonary nodule R91.1 Thrombocytosis D47.3 B12 deficiency E53.8 Depression F32.9 Depression Type: unspecified Anxiety F41.9 DMII (diabetes mellitus, type 2) E11.69 Diabetes mellitus complication status: with other specified complication Diabetes mellitus mcc insulin use: without mcc use HTN (hypertension) I10 Hypertension type: essential hypertension Lower urinary tract symptoms (LUTS) R39.9 Restless legs syndrome with nocturnal myoclonus G25.81; G25.3 DVT prophylaxis Z29.9 Time Spent (min) 35 Comment chart review (1) DMII (diabetes mellitus, type 2) Diabetes mellitus complication status: with other specified complication Diabetes mellitus petroleum terminal plant operator insulin use: without mcc use Qualified Code(s): E11.69 - Type 2 diabetes mellitus with other specified complication (2) Anemia Anemia type: other cause Other causes of anemia: other cause, not classified Qualified Code(s): D64.89 - Other specified anemias (3) Depression Depression Type: unspecified Qualified Code(s): F32.9 - Major depressive disorder, single episode, unspecified (4) HTN (hypertension) Hypertension type: essential hypertension Qualified Code(s): I10 - Essential (primary) hypertension
[2021-03-09] MEDS: INSULIN ASPART 100 UNITS/ML 3 ML PEN SC SCH ×4 (08:06→21:54)
[2021-03-09 08:30] LABS: Hematocrit (blood only) 31.2 % (42-52); Hemoglobin 8.7 g/dL (14.0-18.0); Mean Corpuscular Hgb Conc 27.9 g/dL (32-36); Mean Corpuscular Volume 64.5 fL (80-100); Mean Platelet Volume 8.4 fL (7.4-10.4); Platelet Count 447 K/uL (130-400); RDW Coefficient of Variation 30.6 % (11.5-14.5); Red Blood Count 4.84 M/uL (4.7-6.1); White Blood Count 9.37 K/uL (4.8-10.8)
[2021-03-09 08:36] LABS: BUN Creatinine Ratio 5.8 (10-20); Calcium 8.3 mg/dl (8.5-10.1); Creatinine Clr Calc Pharmacy 107.4 ml/min; Est GFR (African American) 105.6 ml/min; Est GFR (Non-African American) 91.2 ml/min; Potassium 3.6 mmol/L (3.5-5.1)
[2021-03-09] MEDS: busPIRone 5 MG TAB PO SCH (08:44)
[2021-03-09] MEDS: SERTRALINE HCL 100 MG TABLET PO SCH (08:45)
[2021-03-09] MEDS: METOPROLOL TARTRATE 25 MG TAB PO SCH ×2 (08:45→21:30)
[2021-03-09] MEDS: ENALAPRIL MALEATE 5 MG TAB PO SCH (08:45)
[2021-03-09] MEDS: CYANOCOBALAMIN 500 MCG TABLET (VITAMIN B-12) PO SCH (08:45)
[2021-03-09] MEDS: cloNIDine HCL 0.1 MG TAB PO SCH (08:45)
[2021-03-09] MEDS: TOPIRAMATE 100 MG TAB PO SCH ×2 (08:46→21:30)
--- NOTE | 2021-03-09 09:15 | Pulmonary Consultation ---
Date of Consultation March 09, 2021 Assessment & Plan (1) Pulmonary nodule: Impression: 50-year-old male with obstructing colon cancer and pulmonary nodule. The nodule is not amenable to bronchoscopy. Recommendations: 1. Pulmonary nodule: I independently reviewed the images. There is no way for us to access this nodule bronchoscopically. I am unclear whether or not CT- guided biopsy may be an option or not as the lesion is located on the diaphragm and may have significant movement. Could discuss with radiology to see whether or not it may be biopsied here. If not, the patient may require video-assisted thoracoscopic evaluation with wedge resection to achieve definitive pathology. This is not available here and would require transfer to a tertiary center. Alternatively, could pursue outpatient PET scan although a negative PET scan would not exclude malignancy and tissue confirmation may be required. Would defer to medical oncology. Pulmonary will sign off at this point in time. Feel free to contact us if we can be of additional assistance. History of Present Illness Attending Physician: Jose A Ardon History of Present Illness Asked by hospitalist to evaluate this patient with pulmonary nodule. History is obtained from review electronic medical record. This 50-year-old incarcerated male was admitted to the facility 03/04/2021 with complaints of a low hemoglobin. CT of the abdomen showed segment of bowel thickening suspicious for colonic mass as well as a 1 cm left lower lobe nodule. He underwent colonoscopy yesterday which revealed an obstructing large mass in the descending colon measuring over 10 cm. Surgery was consulted and recommended biopsy of the pulmonary nodule. This prompted a pulmonary consultation. Allergies Allergy/AdvReac Type Severity Reaction Status Date / Time shellfish derived Allergy Unknown ON MED LIST Verified 03/08/21 08:28 Home Medications Medication Instructions Recorded Confirmed Type buspirone 10 mg PO DAILY 03/04/21 03/04/21 History clonidine HCl 0.1 mg PO DAILY 03/04/21 03/04/21 History clonidine HCl 0.3 mg PO HS 03/04/21 03/04/21 History enalapril maleate 5 mg PO DAILY 03/04/21 03/04/21 History metformin 1,000 mg PO BID 03/04/21 03/04/21 History metoprolol tartrate 25 mg PO BID 03/04/21 03/04/21 History sertraline 200 mg PO DAILY 03/04/21 03/04/21 History topiramate 200 mg PO BID 03/04/21 03/04/21 History Patient History Medical History Anemia Anemia Anxiety B12 deficiency Depression DMII (diabetes mellitus, type 2) GI bleed HTN (hypertension) Pulmonary nodule Restless legs syndrome with nocturnal myoclonus Family History Father Coronary heart disease Dyslipidemia Hypertension Mother Diabetes Dyslipidemia Sister Ovarian cancer Grandfather Colorectal cancer Social History Smoking Status: Former smoker Smoking End Date: 20 years ago; Hx Alcohol Use: No Hx Substance Use: No Preferred Language: Marshallese Communication Ability: Effective Direct Support Professional Caregiver Required: No Beliefs That Will Affect Care: None Current Living Situation Comment: [facility] Feels Safe at Home: Yes Safety Concerns: Feels Safe At This Time Assistive Devices: Glasses Review of Systems Review of Systems: Please refer to hospitalist note. No additions or deletions Physical Exam 2 Physical Exam: Please refer to the hospitalist exam. Results & Data Results & Data ([facility]) Vital Signs (Past 12 Hours) Vital Signs Temp Pulse Resp BP BP Pulse Ox 03/09/21 07:09 37.4 C 66 18 110/70 98 03/09/21 03:42 37.0 C 68 16 106/65 97 03/08/21 23:25 36.9 C 69 16 101/66 97 03/08/21 21:13 64 113/68 Laboratory Results 03/09/21 07:30 03/09/21 07:[address] OF THE CHEST WITH IV CONTRAST, independently reviewed CLINICAL HISTORY: f/u pulm nodule,with colon mass,looking for mets COMPARISON STUDY: No previous studies for comparison. TECHNIQUE: Following the IV administration of Optiray, CT of the thorax was performed from the thoracic inlet to the lung bases. Images are reviewed in the axial, sagittal, and coronal planes. IV contrast was administered without complication. A dose lowering technique was utilized adhering to the principles of ALARA. CT DOSE: 677.42 mGy.cm FINDINGS: There is no axillary, supra clavicle or internal mammary lymphadenopathy seen. Mediastinal lymph nodes are not enlarged. Visualized portion of thyroid gland shows no evidence of focal lesions. Esophagus is normal. Aorta is normal in caliber. Heart is normal in size without evidence of pericardial effusion. No coronary c alcifications are seen. Tracheobronchial tree is patent. No infiltrates or consolidative lesions are seen. Linear densities are seen within lingula and subpleural aspect of the left lower lobe and could represent subsegmental atelectasis. -There is 16 mm subpleural irregular nodule is seen within posterior aspect of the left lower lobe (4/243). There is adjacent small hypoattenuating collection within left lower lobe which might represent loculated small left pleural effusion. No other pulmonary nodules seen. Evaluation of lung parenchyma is limited due to mild respiratory motion artifact. Limited evaluation of upper abdominal viscera shows no evidence of acute abnormalities. Osseous structures: Mild degenerative changes of the spine. IMPRESSION: 1. Large irregular pulmonary nodule within left lower lobe with questionable adjacent and possibly loculated pleural effusion. Fibers are/follow-up evaluation is per clinical protocol. 2. No mediastinal lymphadenopathy seen. PG Care Time/CCT Total # of Minutes Spent Total Time Spent with Patient: Total time spent is greater than 50% in coordination of care (as documented) at patient's floor/unit and/or counseling patient: Coding Level of Care Code 69594 Office/OBS Consult Lvl 4 Diagnoses Pulmonary nodule R91.1
--- NOTE | 2021-03-09 14:58 | Surgery Progress Note ---
Date of Service March 09, 2021 Assessment & Plan (1) Adenocarcinoma of descending colon: 50-year-old incarcerated male with adenocarcinoma of the descending colon with mesenteric lymphadenopathy and pulmonary nodule. Pulmonology is seen the patient do not feel he is amenable to an endobronchial biopsy. We discussed the case at tumor board and though this lesion is not extremely concerning for metastatic pulmonary nodule, we will proceed with PET scan for further evaluation. Radiology did not feel that this would be amenable to percutaneous biopsy given its location close to the diaphragm. We will also await the immunohistochemical staining for Roche syndrome given his strong family history and extensive nature of the tumor. If the PET scan shows increased activity in the pulmonary nodule he will require biopsy which may need to be performed thoracoscopically at a tertiary center. If limb syndrome is negative and the pulmonary nodule is little concern, we can proceed with left hemicolectomy. Oncology has been consulted. PET scan Pulmonary nodule PET positive, and likely needs thoracoscopic biopsy Await results of immunohistochemical staining for Roche syndrome which will determine whether he needs total proctocolectomy/subtotal colectomy versus segmental colectomy. Total proctocolectomy would require transfer to a tertiary center colorectal surgery Surgery will continue to follow peripherally. This work-up could be completed as an outpatient, or continued as an inpatient to expedite the process (2) Pulmonary nodule: Admission and Anticipated Discharge Date Admission Date: March 04, 2021 Subjective 50-year-old incarcerated male admitted with anemia, CT imaging showed descending colon mass and lung nodule along with mesenteric lymphadenopathy, colonoscopy yesterday confirmed long segment descending colon mass with biopsies proving adenocarcinoma. Immunohistochemical stain for Roche syndrome is pending. Physical Exam Constitutional: WD/WN, vitals as above Gastrointestinal (Abdomen): normal bowel sounds, soft, nontender, no hepatosplenomegaly Results & Data ([facility]) Vital Signs (Past 12 Hours) Vital Signs Temp Pulse Resp BP BP Pulse Ox 03/09/21 14:27 36.9 C 72 18 108/67 98 03/09/21 07:09 37.4 C 66 18 110/70 98 03/09/21 03:42 37.0 C 68 16 106/65 97 Diagnostic Findings FINAL DIAGNOSIS Mass, descending colon, biopsies: - Atypical glandular proliferation representing at least intramucosal adenocarcinoma Comment: Sections show atypical colonic mucosa with extensive severe dysplasia and intramucosal adenocarcinoma. Although foci suspicious for fully invasive adenocarcinoma are noted they are not definitive. Immunohistochemical evaluation to rule out Roche syndrome will be performed. Results of those stains will be reported in an addendum at 0968. Clinical History Abnormal CT scan. Family history of colon cancer (grandfather). Procedure performed: Colonoscopy. Gross Description DESCENDING COLON MASS The specimen is received in a container labeled descending colon mass bx with the patient name. The specimen consists of multiple pink, brown and kelly irregular fragments of soft tissue and possible vegetable material. The fragments range from 0.1 - 0.7 cm in greatest dimension. The specimen is submitted entirely in a single cassette for levels. PG Care Time/CCT Total # of Minutes Spent Total Time Spent with Patient: Total time spent is greater than 50% in coordination of care (as documented) at patient's floor/unit and/or counseling patient: Coding Level of Care Code 49552 Inpt Consult Level 3 Diagnoses Adenocarcinoma of descending colon C18.6 Pulmonary nodule R91.1
[2021-03-09] MEDS: cloNIDine HCL 0.3 MG TAB PO SCH (21:30)
[2021-03-09] MEDS: ENOXAPARIN INJ 40 MG/0.4 ML SYR SQ SCH (21:30)
--- NOTE | 2021-03-09 21:35 | Hospitalist Progress Note ---
Date of Service March 09, 2021 Assessment & Plan (1) Anemia: Multifactorial with microcytic hypochromic. Hgb 6.5 on admission No gross bleeding anywhere prior to admission CT abd/pel with 8cm segment of bowel wall thickening in prox descending colon w/ associated mesenteric TORY--> highly suspicious for colon mass no liver lesions, normal LFTs With strong +FH of sister with ovarian CA age 42, Brother with colon CA age 52, and grandfather with colon CA Most likely all occult blood loss from colon mass -S/P 2 units pRBCs and hgb has been steady -recieved Venofer 300mg IV daily x 3 days (iron studies not drawn prior to transfusion being given)-last day will be 03/07 -follow CBC in AM -Colonosocpy is showing evidence of malignancy. -will consult Gen surgry: rec. Outpatient PET scam -await input from Oncology. -also B12 low at 250--> gave IM B12 1000 mcg daily x 3 days and now transition to B12 500mcg po daily -check CEA-pending (2) Abnormal CT scan: 1. An 8 cm segment of moderate bowel wall thickening involving the proximal descending colon with associated pericolonic/mesenteric lymphadenopathy as described above. This is highly suspicious for a colonic mass. GI consultation recommended for follow-up colonoscopy. 2. There is a 1.4 cm irregular nodule within the left lower lobe posteriorly abutting the pleura with a trace left pleural effusion. This could represent neoplasm/metastatic disease. Follow-up PET scan recommended for further evaluation. Gastroenterology consult placed evaluate for malignancy -plan for colonoscopy on Monday as no obstruction -check CEA-pending -continue clears today, NPO after midnight Sun for C-scope Monday -bowel prep ordered for 1500 today (3) GI bleed: as above Hemeoccult stool positive (4) Pulmonary nodule: 1.4 LLL nodule with small effusion Does have a h/o severe PNA in his 20s Former smoker but quit 20 years ago Could be metastatic disease Radiology recommends PET scan CT chest here also with large irregular pulmonary nodule within left lower lobe measuring 1.6 cm with questionable adjacent possibly loculated pleural effusion Discussed and reviewed CT with pulmonology-recommends PET scan as an outpatient (5) Thrombocytosis: 600s and now down to 400s, likely reactive secondary to severe Fe-def anemia follow CBC (6) B12 deficiency: as above replace as above with IM B12 and start po B12 tomorrow (7) Depression: Anxiety/depression Continue sertaline, buspirone, topiramate (8) Anxiety: continue home meds as above (9) DMII (diabetes mellitus, type 2): Hold metformin from home -accuchecks, Novolog achs glucose here excellent Hemoglobin A1c well controlled at 6.6% (10) HTN (hypertension): BPs controlled - Continue Clonidine, metoprolol, and enalapril (11) Lower urinary tract symptoms (LUTS): hesitation with starting urine was a complaint upon admission-this is now resolved bladder scan qshift to check PVRs-minimal at 40 mL Make bladder scans as needed (12) Restless legs syndrome with nocturnal myoclonus: new onset in last few months, severe limb movement at times most likely due to severe iron deficiency replacing iron and received PRBCs Has no further complaints of this (13) DVT prophylaxis: Lovenox SQ Dispo-continued stay, awaiting colonoscopy on Monday. Further disposition from there to be determined based on colonoscopy findings Will need outpatient PET scan arranged for lung nodule as well as colon mass if found to be malignant Admission and Anticipated Discharge Date Admission Date: March 04, 2021 Subjective 50 yo male reports feeling well. He has no new complaints. Review of Systems Review of Systems: All systems reviewed & are unremarkable except as noted in HPI & below Physical Exam Physical Exam: Constitutional: WD/WN, vitals as above Eyes: + anicteric sclerae Neck: trachea midline, no thyromegaly Respiratory: normal respiratory effort, lungs clear to auscultation Cardiovascular: RRR, no murmur, no edema Extremities: no calf tenderness Chest (Breasts): Chest: normal inspection of chest Gastrointestinal (Abdomen): normal bowel sounds, soft, nontender, no hepatosplenomegaly Musculoskeletal: Extremities: extremities normal to inspection; no cyanosis and no clubbing Skin: no rashes, warm and dry Neurologic: moves all extremities and awake; no focal motor deficits Psychiatric: A+Ox3, euthymic affect Lymphatic: no lymphedema Results & Data Results & Data ([facility]) Vital Signs (Past 12 Hours) Vital Signs Temp Pulse Resp BP BP Pulse Ox 03/09/21 21:28 66 115/73 03/09/21 14:27 36.9 C 72 18 108/67 98 PG Care Time/CCT Total # of Minutes Spent Total Time Spent with Patient: Total time spent is greater than 50% in coordination of care (as documented) at patient's floor/unit and/or counseling patient: Coding Level of Care Code 73630 Subseq Hosp Care Lvl 2 Diagnoses Anemia D64.89 Anemia type: other cause Other causes of anemia: other cause, not classified Abnormal CT scan R93.89 GI bleed K92.2 Pulmonary nodule R91.1 Thrombocytosis D47.3 B12 deficiency E53.8 Depression F32.9 Depression Type: unspecified Anxiety F41.9 DMII (diabetes mellitus, type 2) E11.69 Diabetes mellitus complication status: with other specified complication Diabetes mellitus custodial insulin use: without custodial use HTN (hypertension) I10 Hypertension type: essential hypertension Lower urinary tract symptoms (LUTS) R39.9 Restless legs syndrome with nocturnal myoclonus G25.81; G25.3 DVT prophylaxis Z29.9 Time Spent (min) 25 (1) DMII (diabetes mellitus, type 2) Diabetes mellitus complication status: with other specified complication Diabetes mellitus long term care pharmacist insulin use: without long term care pharmacist use Qualified Code(s): E11.69 - Type 2 diabetes mellitus with other specified complication (2) Anemia Anemia type: other cause Other causes of anemia: other cause, not classified Qualified Code(s): D64.89 - Other specified anemias (3) Depression Depression Type: unspecified Qualified Code(s): F32.9 - Major depressive disorder, single episode, unspecified (4) HTN (hypertension) Hypertension type: essential hypertension Qualified Code(s): I10 - Essential (primary) hypertension
[2021-03-10] MEDS: ENALAPRIL MALEATE 5 MG TAB PO SCH (08:33)
[2021-03-10] MEDS: TOPIRAMATE 100 MG TAB PO SCH (08:33)
[2021-03-10] MEDS: cloNIDine HCL 0.1 MG TAB PO SCH (08:34)
[2021-03-10] MEDS: CYANOCOBALAMIN 500 MCG TABLET (VITAMIN B-12) PO SCH (08:34)
[2021-03-10] MEDS: SERTRALINE HCL 100 MG TABLET PO SCH (08:34)
[2021-03-10] MEDS: busPIRone 5 MG TAB PO SCH (08:35)
[2021-03-10] MEDS: METOPROLOL TARTRATE 25 MG TAB PO SCH (08:37)
[2021-03-10] MEDS: INSULIN ASPART 100 UNITS/ML 3 ML PEN SC SCH ×3 (08:59→17:38)
--- NOTE | 2021-03-10 11:19 | Consultation Report ---
DATE OF CONSULTATION: 03/10/2021 MEDICAL ONCOLOGY CONSULTATION REASON FOR CONSULTATION: Adenocarcinoma of the transverse colon. HISTORY OF PRESENT ILLNESS: Ronen is a pleasant 50-year-old inmate who was admitted on 03/04 with anemia. According to Ronen, he had undergone routine blood work provided by the custodial and found his hemoglobin to be quite low at 6.5, hematocrit 25.8. He denied any preceding symptoms, which is quite frankly amazing, specifically denying rectal bleeding, hematochezia or melena stools. He was sent to the hospital where he underwent a CT scan of the abdomen and pelvis revealing an 8 cm segment of moderate bowel wall thickening involving the proximal descending colon and associated pericolonic and mesenteric lymphadenopathy, highly suspicious for a primary colon mass. He underwent a colonoscopy on the by Dr. Esparza. The scope revealed an infiltrative partially ulcerated obstructing large mass in the descending colon. Mass was circumferential involving 100% of the lumen circumference. Mass measured 10 cm in length. Oozing was present as well. The patient has since received IV iron and transfusional support. Dr. Yu from general surgery was consulted and discussed his case at tumor board. Radiographically, there is a pleural based lesion, which is undiagnosed. Recommendations made at tumor board were to have the patient discharged, obtain PET scan. If the pleural lesion lights up, consider thoracoscopic examination and biopsy. Clinically, Ronen feels well and would agree with Dr. Yu that there is no expedience necessary to take him to surgery right away. Therefore, would proceed with stabilizing his anemia and prepare for discharge back to custodial to obtain PET scan moving forward. PAST MEDICAL HISTORY: Iron-deficiency anemia, anxiety, depression, type 2 diabetes mellitus, hypertension, restless legs syndrome. MEDICATIONS: Include buspirone 10 mg p.o. daily, clonidine 0.1 mg p.o. daily, clonidine 0.3 mg p.o. at bedtime, enalapril 5 mg p.o. daily, metformin 1000 mg p.o. b.i.d., metoprolol 25 mg p.o. b.i.d., sertraline 200 mg p.o. daily, topiramate 200 mg p.o. b.i.d. ALLERGIES: SHELLFISH. FAMILY HISTORY: Paternal grandfather with colorectal cancer. His sister succumbed to ovarian cancer. Father suffers from coronary artery disease and hypertension. Mother is diabetic as well. SOCIAL HISTORY: The patient was a reformed smoker. He is currently a custodial inmate in [facility]. Negative for alcohol or illicit substances. REVIEW OF SYSTEMS: GENERAL: Negative for fevers, chills or sweats. He is not anorexic or losing weight. SKIN: No rashes or lesions. No history of dermatoses. HEENT: Negative for headaches, lightheadedness or dizziness. No dysphagia or sore throat. LYMPHATICS: No history of lymphoproliferative disease. CARDIAC: No history of coronary artery disease. No current angina or palpitations. PULMONARY: Negative for COPD. No shortness of breath, dyspnea or orthopnea. No cough or hemoptysis. GASTROINTESTINAL: Again, descending colon mass diagnosed on colonoscopy. He is having no abdominal pain, hematochezia or melena stools surprisingly. GENITOURINARY: No history of prostate disease. No hematuria, dysuria, or urinary incontinence. PSYCHIATRIC: Positive for anxiety and depression by history. MUSCULOSKELETAL: No focal muscle weakness or arthralgias. ENDOCRINE: Positive for diabetes mellitus. HEMATOLOGIC: Positive for iron-deficiency anemia. PHYSICAL EXAMINATION: GENERAL: Very pleasant 50-year-old gentleman in no acute distress. VITAL SIGNS: Temperature 36.7, pulse 60, respiratory rate 16, blood pressure 115/74. SKIN: Warm, dry, noncyanotic without petechia, rash or ecchymosis. HEENT: Head is atraumatic, normocephalic. Eyes: PERRLA, EOMI. Sclerae nonicteric. No conjunctival injection. Nares are patent without rhinorrhea or discharge. Throat is clear. Tongue is midline. Mucous membranes are moist. NECK: Supple without JVD or thyromegaly. LYMPHATICS: No cervical, supraclavicular or axillary palpable nodes. HEART: Regular rate and rhythm. No clicks, rubs, murmurs or gallops. LUNGS: Clear to auscultation bilaterally. ABDOMEN: Soft, nontender, nondistended, without palpable hepatosplenomegaly. EXTREMITIES: Musculoskeletal strength and pulses are equal in all 4 quadrants. No clubbing, cyanosis or edema. NEUROLOGICAL: Awake, alert and oriented x3. Cranial nerves grossly intact. LABORATORY DATA: WBC count 9370, hemoglobin 8.7, MCV 64.5, platelet count 447,000. Sodium 140, potassium 3.6, chloride 112, carbon dioxide 20, BUN 6, creatinine 0.96. IMPRESSION: 1. Descending colonic adenocarcinoma with regional lymphadenopathy. 2. Iron-deficiency anemia. 3. Gastrointestinal bleeding. 4. Reactive thrombocytosis. 5. Anxiety/depression. 6. Type 2 diabetes mellitus. PLAN: I have been asked to see Ronen at bedside today. This gentleman presented asymptomatically. His anemia discovered on routine blood work provided by the custodial. He was subsequently sent to the Emergency Room where he underwent a CT scanning of the abdomen and pelvis, detecting wall thickening in the descending colon leading to colonoscopy and subsequent diagnosis. However, there is a pleural based lesion that has yet to be diagnosed. We discussed Ronen' case in tumor board yesterday, the consensus agreed to proceed with stabilization of anemia, discharge and follow up by PET scan. If the pleural lesion reveals FDG uptake, then we would need to pursue biopsy. Unfortunately, the position of the lesion is not amenable to biopsy needle and therefore, thoracoscopic approach would be necessary. Dr. Yu agrees to proceed with surgery if PET scan is negative for disseminated metastatic disease. I agree with medical management including incorporation of iron sucrose to supplement this gentleman's deficient iron stores. We will make arrangements to have him seen in followup. TANYA
[2021-03-10 13:47] LABS: Hemoglobin 9.2 g/dL (14.0-18.0); Mean Corpuscular Hemoglobin 18.2 pg (25-34); Mean Corpuscular Hgb Conc 27.9 g/dL (32-36); Mean Corpuscular Volume 65.3 fL (80-100); Platelet Count 359 K/uL (130-400); RDW Coefficient of Variation 32.3 % (11.5-14.5); RDW Standard Deviation 66.1 fL (36.4-46.3); Red Blood Count 5.05 M/uL (4.7-6.1); White Blood Count 8.22 K/uL (4.8-10.8)
[2021-03-10 13:59] LABS: BUN Creatinine Ratio 7.5 (10-20); Calcium 8.3 mg/dl (8.5-10.1); Creatinine Clr Calc Pharmacy 113.3 ml/min; Est GFR (African American) 112.7 ml/min; Est GFR (Non-African American) 97.2 ml/min; Potassium 3.9 mmol/L (3.5-5.1)
[2021-03-10 14:03] LABS: Anisocytosis Present; Basophils # (auto) 0.04 K/uL (0-0.2); Basophils % (auto) 0.5 %; Eosinophils # (auto) 0.29 K/uL (0-0.5); Eosinophils % (auto) 3.5 %; Hypochromasia Present; Immature Granulocytes # (auto) 0.01 K/uL (0.00-0.02); Immature Granulocytes % (auto) 0.1 %; Lymphocytes # (auto) 1.65 K/uL (1.2-3.4); Lymphocytes % (auto) 20.1 %; Microcytosis Present; Monocytes # (auto) 0.64 K/uL (0.11-0.59); Monocytes % (auto) 7.8 %; Neutrophils # (auto) 5.59 K/uL (1.4-6.5); Ovalocytes 1+; Polychromasia 1+
[2021-03-10 14:04] LABS: Ferritin 230.6 ng/ml (8-388)
--- NOTE | 2021-03-15 08:26 | Discharge Summary ---
Date of Service March 10 2021 Admission HPI Per Admitting Provider 50 YOM with past medical history of: HTN, DMII, anxiety, depression. Patient was brought over from [facility] today for abnormal labs with a HGB of 6.5 , HCT 25.8. He denies any history or recent, blood in stools, dark tarry stools, hematemesis. He had a CT scan performed of his abdomen and pelvis that revealed a 8 cm segment of moderate bowel wall thickening involving the proximal descending colon with associated pericolonic/mesenteric lymphadenopathy as, That is highly suspicious for a colonic mass. He is also noted to have 1.cm irregular nodule within the left lower lobe with trace left pleural effusion. He was typed and crossed for PRBC and was receiving 1 unit upon evaluation. As above, he denies any blood in stools, hematemesis, or blood when wiping. He has no pain with defecation or change in his stool caliber or frequency. He will occasionally get a pain in his right lower quadrant that will radiate to his testicle maybe once a week. He also endorses early satiety for the past 2 months as well as feeling easily tired and fatigued. Says he weighed himself recently and was 230 lbs which was ~30 pound weight loss over the past 4-6 months. Denies any bone pain or difficulty breathing. No night sweats or waking. He recall, Grandfather with history of colon cancer, sister is from Ovarian cancer, and Brother had some stomach disease and finishing Chemo. 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 Discharge Exam Constitutional: WD/WN, vitals as above Eyes: + anicteric sclerae Neck: trachea midline, no thyromegaly Respiratory: normal respiratory effort, lungs clear to auscultation Cardiovascular: RRR, no murmur, no edema Extremities: no calf tenderness Chest (Breasts): Chest: normal inspection of chest Gastrointestinal (Abdomen): normal bowel sounds, soft, nontender, no hepatosplenomegaly Musculoskeletal: Extremities: extremities normal to inspection; no cyanosis and no clubbing Skin: no rashes, warm and dry Neurologic: moves all extremities and awake; no focal motor deficits Psychiatric: A+Ox3, euthymic affect Lymphatic: no lymphedema Discharge Data Allergies Allergy/AdvReac Type Severity Reaction Status Date / Time shellfish derived Allergy Unknown ON MED LIST Verified 03/08/21 08:28 Consultations 03/04/21 20:12 ED Decision to Admit Stat 03/04/21 22:51 Consult Gastroenterology Routine 03/08/21 11:04 Consult General Surgery Routine 03/09/21 07:53 Consult Oncology Routine 03/09/21 09:00 Consult Pulmonology Routine Procedures Performed Operation Date: 03/08/21 16:30 Actual Procedures p Colonoscopy Biopsy Cytology - Alison Esparza MD Ordered Studies 03/04/21 19:14 CT abd pelvis IV con only Stat 03/05/21 19:01 CT chest diagnostic w con Routine Hospital Course (1) Anemia: Multifactorial with microcytic hypochromic. Hgb 6.5 on admission No gross bleeding anywhere prior to admission CT abd/pel with 8cm segment of bowel wall thickening in prox descending colon w/ associated mesenteric TORY--> highly suspicious for colon mass no liver lesions, normal LFTs With strong +FH of sister with ovarian CA age 42, Brother with colon CA age 52, and grandfather with colon CA Most likely all occult blood loss from colon mass -S/P 2 units pRBCs and hgb has been steady -recieved Venofer 300mg IV daily x 3 days (iron studies not drawn prior to transfusion being given)-last day will be 03/07 -follow CBC in AM -Colonosocpy is showing evidence of malignancy. -will consult Gen surgry: rec. Outpatient PET scam. -Asked for expedited approval from group home for PET scan as this can only be done as an outpatient. -Oncology recommends outpatient followup after PET scan. (2) Abnormal CT scan: 1. An 8 cm segment of moderate bowel wall thickening involving the proximal descending colon with associated pericolonic/mesenteric lymphadenopathy as described above. This is highly suspicious for a colonic mass. GI consultation recommended for follow-up colonoscopy. 2. There is a 1.4 cm irregular nodule within the left lower lobe posteriorly abutting the pleura with a trace left pleural effusion. This could represent neoplasm/metastatic disease. Follow-up PET scan recommended for further evaluation. Gastroenterology consult placed evaluate for malignancy -plan for colonoscopy on Monday as no obstruction -check CEA-pending -continue clears today, NPO after midnight Sun for C-scope Monday -bowel prep ordered for 1500 today (3) GI bleed: as above Hemeoccult stool positive (4) Pulmonary nodule: 1.4 LLL nodule with small effusion Does have a h/o severe PNA in his 20s Former smoker but quit 20 years ago Could be metastatic disease Radiology recommends PET scan CT chest here also with large irregular pulmonary nodule within left lower lobe measuring 1.6 cm with questionable adjacent possibly loculated pleural effusion Discussed and reviewed CT with pulmonology-recommends PET scan as an outpatient (5) Thrombocytosis: 600s and now down to 400s, likely reactive secondary to severe Fe-def anemia follow CBC (6) B12 deficiency: as above replace as above with IM B12 and start po B12 tomorrow (7) Depression: Anxiety/depression Continue sertaline, buspirone, topiramate (8) Anxiety: continue home meds as above (9) DMII (diabetes mellitus, type 2): Hold metformin from home -accuchecks, Novolog achs glucose here excellent Hemoglobin A1c well controlled at 6.6% (10) HTN (hypertension): BPs controlled - Continue Clonidine, metoprolol, and enalapril (11) Lower urinary tract symptoms (LUTS): hesitation with starting urine was a complaint upon admission-this is now resolved bladder scan qshift to check PVRs-minimal at 40 mL Make bladder scans as needed (12) Restless legs syndrome with nocturnal myoclonus: new onset in last few months, severe limb movement at times most likely due to severe iron deficiency replacing iron and received PRBCs Has no further complaints of this (13) DVT prophylaxis: Lovenox SQ Total Time Total Time Spent Total Time Spent (In Minutes): 32 Total Time Includes: Examination of the Patient, Discharge Planning and Medication Reconciliation Discharge Plan Discharge Items [facility] Disposition[facility] Reason For Visit: ANEMIA Discharge Diagnosis: Anemia Condition on Discharge: Fair Activity: Resume your previous activity Non-emergency contact: Primary Care Provider Call non-emergency contact if: you have any medication questions Follow-up/Referrals: Gurmeet MCLAUGHLIN [Primary Care Provider] - Diet: Full liquid Addtl Attending Provider Instructions: Patient will require an expedited approval to obtain a PET scan as an outpatient within 7-10 days from discharge. You were found to have a tumor in your colon. There is a strong concern this is a malignancy. Will recommend an outpatient PET scan. If you PET scan is negative for malignancy in your lung, will recommend likely colon resection of the mass. If it is positive, very likely will need to be seen by tertiary center. Will need to follow up with Gen Surgery and Oncology as an outpatient after PET scan is completed. Given risk of bleeding, will hold off anticoagulation in the short term. Given how you came in with anemia, being on a blood thinning medication long ter m carries its own risk. Oncology is agreeable to holding anticoagulation as an outpatient for the mean time. will place you on iron tablets. Check CBC bmp once weekly Pending Studies at Discharge: No Stand-Alone Forms: My [facility] Skilled Items Patient informed of condition?: No Discharge Level of Care: Other Communicable Disease: No Discharge Prognosis: Stable Lines: None Urinary Catheter: No Medications and DC Order Prescriptions: New cyanocobalamin (vitamin B-12) 500 mcg Tablet 500 mcg PO QAM Qty: 30 RF: 0 ferrous sulfate 325 mg (65 mg iron) tablet 325 mg PO DAILY Qty: 30 RF: 0 Continued clonidine HCl 0.1 mg Tablet 0.1 mg PO DAILY RF: 0 enalapril maleate 5 mg Tablet 5 mg PO DAILY RF: 0 clonidine HCl 0.3 mg Tablet 0.3 mg PO HS RF: 0 sertraline 100 mg Tablet 200 mg PO DAILY RF: 0 metformin 1,000 mg Tablet 1,000 mg PO BID RF: 0 buspirone 10 mg Tablet 10 mg PO DAILY RF: 0 topiramate 100 mg Tablet 200 mg PO BID RF: 0 metoprolol tartrate 25 mg Tablet 25 mg PO BID RF: 0 Discharge Orders: Discharge Order (Routine); Ordered 03/10/21 Ordered By: Jose A Alvarado/Other Patient Handouts: Managing Type 2 Diabetes, A1C Admission Data Admit Date/Time: 03/04/21 21:29 Attending Provider: Jose A Ardon Admit Provider: Rufus Martinez Primary Care Provider: Gurmeet MCLAUGHLIN Other Providers: Crissy Freeman ; Melissa Wright ; Lionel Yu ; Julius Hillman V. ; Renato Wakefield ; Parminder Hardwick ; Marta Matamoros ; Lm Graham ; Rose Henry ; Richard Dang ; Felipe Hernández ; Dina Hussein Other Interventions: Discharge Summary Assessment (RN) Last Done: 03/10/21 17:30 Coding Level of Care Code D/C Day Management >30 mins Diagnoses Anemia D64.89 Anemia type: other cause Other causes of anemia: other cause, not classified Abnormal CT scan R93.89 GI bleed K92.2 Pulmonary nodule R91.1 Thrombocytosis D47.3 B12 deficiency E53.8 Depression F32.9 Depression Type: unspecified Anxiety F41.9 DMII (diabetes mellitus, type 2) E11.69 Diabetes mellitus retirement insulin use: without emt intermediate use Diabetes mellitus complication status: with other specified complication HTN (hypertension) I10 Hypertension type: essential hypertension Lower urinary tract symptoms (LUTS) R39.9 Restless legs syndrome with nocturnal myoclonus G25.81; G25.3 DVT prophylaxis Z29.9
== END 2021-03-10 18:59 | DRG 375 ==
LOC: ED 17:43 → SUATTDRO 21:29 → 3E 21:29